=== PATIENT | male | born 1960 | race Hispanic/Latino ===

== ENCOUNTER 2020-03-22 10:39 | Inpatient (IN) | payer BC ==
[~2020-03-22] VITALS: Ht 167.6 cm; Wt 118.9 kg
[2020-03-22] MEDS ORDERED: LACTATED RINGER'S 500 ML IV ONE (11:15)
[2020-03-22 11:24] LABS: BASOPHILS # (AUTO) 0.1 (0.0-0.1); BASOPHILS % 0.7 % (0.0-1.0); HEMATOCRIT 37.5 % (38.2-49.6); HEMOGLOBIN 12.5 g/dL (14.0-18.0); LYMPHOCYTES # (AUTO) 0.6 (1.0-3.2); LYMPHOCYTES % 5.9 % (18.0-39.1); MEAN CORPUSCULAR HEMOGLOBIN 31.7 pg (28-32); MEAN CORPUSCULAR HGB CONC 33.3 g/dL (31-35); MEAN CORPUSCULAR VOLUME 95.2 fL (81-99); MONOCYTES % 11.1 % (4.4-11.3); NEUTROPHILS # (AUTO) 7.4 (2.1-6.9); NEUTROPHILS % 79.3 % (38.7-80.0); PLATELET COUNT 91 x10e3/uL (140-360); RED BLOOD COUNT 3.94 x10e6/uL (4.3-5.7); RED CELL DISTRIBUTION WIDTH 14.2 % (11.7-14.4)
[2020-03-22] MEDS ORDERED: LACTATED RINGER'S 1,000 ML ONE (11:32)
[2020-03-22 12:04] LABS: ALBUMIN 2.5 g/dL (3.5-5.0); ALBUMIN/GLOBULIN RATIO 0.7 (0.8-2.0); ANION GAP 25.9 mmol/L (8-16); CALCIUM 7.8 mg/dL (8.4-10.2); CREATININE, SERUM 7.49 mg/dL (0.72-1.25); POTASSIUM 4.9 mmol/L (3.5-5.1)
[2020-03-22] MEDS ORDERED: LACTATED RINGER'S 1,000 ML INJ ONE (12:15)
[2020-03-22 12:26] LABS: BAND NEUTROPHILS % (MANUAL) 1 %; LYMPHOCYTES % (MANUAL) 9 % (19-48); MONOCYTES % (MANUAL) 8 % (3.4-9.0); NEUTROPHILS % (MANUAL) 82 % (40-74); NUCLEATED RED BLOOD CELLS 1; PLATELET ESTIMATE SLIGHTLY DECREASED; PLATELET MORPHOLOGY COMMENT NORMAL; RBC MORPHOLOGY COMMENT NORMAL
[2020-03-22] MEDS ORDERED: PIPERACILLIN/TAZO 4.5 GM 100 ML IV STA (12:52)
[2020-03-22] MEDS ORDERED: SODIUM CHLORIDE 0.9% 1000ML 1,000 ML IV SCH (13:00)
[2020-03-22] MEDS ORDERED: NOREPINEPHRINE INJ 4MG/4ML 8 MG in DEXTROSE 5% 250ML 250 ML IV STA (15:14)
[2020-03-22 15:28] LABS: CLARITY,URINE CLOUDY (CLEAR); COLOR,URINE AMBER (YELLOW); KETONES,URINE 1+ (NEGATIVE); LEUKOCYTE ESTERASE ,URINE LARGE (NEGATIVE); NITRITE,URINE POSITIVE (NEGATIVE); PROTEIN,URINE DIPSTICK >=300 (NEGATIVE); URINE UROBILINOGEN 1 mg/dL (0.2 - 1)
[2020-03-22 15:43] LABS: BACTERIA,URINE MANY /HPF; WBC,URINE (MAN) >50 /HPF (0-5)
[2020-03-22] MEDS ORDERED: DEXTROSE 50% SYRINGE 50 ML IV PRN (16:00)
[2020-03-22] MEDS ORDERED: ALBUTEROL SULF 0.083% NEB SOLN 3 ML NEB NEB PRN (16:15)
[2020-03-22] MEDS ORDERED: DEXTROSE 5%/0.9% SOD CHL 1,000 ML IV SCH (16:15)
[2020-03-22] MEDS ORDERED: CEFAZOLIN SOD 1 GM/NS 50ML 50 ML IV SCH (16:30)
[2020-03-22] MEDS ORDERED: OSELTAMIVIR PHOSPHATE 75 MG CAP PO SCH (17:00)
[2020-03-22] MEDS: INSULIN LISPRO 100 UNIT/1 ML 3ML VIAL SQ SCH ×2 (17:03→20:28)
[2020-03-22] MEDS: SODIUM BICARBONATE 8.4% 150 ML in DEXTROSE 5% 1,000 ML IV SCH (17:42)
[2020-03-22 18:09] VITALS: BP 98/56
[2020-03-22 19:00] VITALS: BP 86/56
[2020-03-22 20:00] VITALS: BP 90/63
[2020-03-22 20:32] LABS: ALBUMIN 2.2 g/dL (3.5-5.0); ALBUMIN/GLOBULIN RATIO 0.6 (0.8-2.0); ANION GAP 20.7 mmol/L (8-16); CALCIUM 7.1 mg/dL (8.4-10.2); CREATININE, SERUM 7.18 mg/dL (0.72-1.25); POTASSIUM 3.7 mmol/L (3.5-5.1)
[2020-03-22 21:00] VITALS: BP 96/69
[2020-03-22] MEDS ORDERED: HEPARIN SOD (PORCINE) 5,000 UNIT/ML VIAL SC SCH (21:00)
[2020-03-22] MEDS: AZITHROMYCIN 500MG/NS 250 ML 250 ML IV SCH (21:30)
[2020-03-22 22:00] VITALS: BP 98/70
[2020-03-22 23:00] VITALS: BP 97/73
[2020-03-22] MEDS ORDERED: CEFTRIAXONE SOD 1 GM/NS 50 ML 50 ML IV SCH (23:30)
[2020-03-23] VITALS (24 sets, daily range): BP systolic 73–202; BP diastolic 36–111
[2020-03-23] MEDS: SODIUM BICARBONATE 8.4% 150 ML in DEXTROSE 5% 1,000 ML IV SCH ×2 (03:57→16:25)
[2020-03-23 04:41] LABS: BASOPHILS # (AUTO) 0.1 (0.0-0.1); BASOPHILS % 1.7 % (0.0-1.0); HEMATOCRIT 36.9 % (38.2-49.6); HEMOGLOBIN 12.4 g/dL (14.0-18.0); LYMPHOCYTES # (AUTO) 0.2 (1.0-3.2); LYMPHOCYTES % 5.9 % (18.0-39.1); MEAN CORPUSCULAR HGB CONC 33.6 g/dL (31-35); MEAN CORPUSCULAR VOLUME 95.3 fL (81-99); MONOCYTES # (AUTO) 0.1 (0.2-0.8); MONOCYTES % 2.2 % (4.4-11.3); NEUTROPHILS # (AUTO) 3.6 (2.1-6.9); NEUTROPHILS % 88.5 % (38.7-80.0); PLATELET COUNT 70 x10e3/uL (140-360); RED BLOOD COUNT 3.87 x10e6/uL (4.3-5.7); RED CELL DISTRIBUTION WIDTH 13.7 % (11.7-14.4)
[2020-03-23 05:03] LABS: ALBUMIN 2.2 g/dL (3.5-5.0); ALBUMIN/GLOBULIN RATIO 0.6 (0.8-2.0); ANION GAP 27.2 mmol/L (8-16); CREATININE, SERUM 7.46 mg/dL (0.72-1.25); POTASSIUM 3.2 mmol/L (3.5-5.1)
[2020-03-23 05:16] LABS: MAGNESIUM 1.7 MG/DL (1.3-2.1); PHOSPHORUS 4.4 MG/DL (2.3-4.7)
[2020-03-23] MEDS ORDERED: DEXMEDETOMIDINE 200MCG/NS 50ML 50 ML IV PRN (06:30)
[2020-03-23 06:34] LABS: BAND NEUTROPHILS % (MANUAL) 27 %; LYMPHOCYTES % (MANUAL) 6 % (19-48); MONOCYTES % (MANUAL) 4 % (3.4-9.0); NEUTROPHILS % (MANUAL) 63 % (40-74); RBC MORPHOLOGY COMMENT ABNORMAL; TOXIC GRANULATION MODERATE
[2020-03-23 06:35] LABS: ANISOCYTOSIS FEW; ELLIPTOCYTE, RBC FEW; PLATELET MORPHOLOGY COMMENT FEW GIANT; SCHISTOCYTES RARE; VACUOLE,WBC FEW
[2020-03-23 06:36] LABS: PLATELET ESTIMATE MODERATELY DECREASED
[2020-03-23] MEDS ORDERED: DEXMEDETOMIDINE 200MCG/NS 50ML 50 ML IV ONE (06:43)
[2020-03-23] MEDS ORDERED: AMIODARONE HCL 100 ML IV ONE (07:00)
[2020-03-23] MEDS ORDERED: AMIODARONE 900MG 500 ML IV ONE (07:01)
[2020-03-23] MEDS: INSULIN LISPRO 100 UNIT/1 ML 3ML VIAL SQ SCH ×4 (07:30→23:39)
[2020-03-23] MEDS ORDERED: ADENOSINE 6MG/2ML 0 ML ONE (07:53)
[2020-03-23] MEDS ORDERED: DILTIAZEM HCL VIAL 5 ML ONE (08:06)
[2020-03-23] MEDS ORDERED: HEPARIN 25,000 UNIT 1,000 UNIT in DEXTROSE 5% 250ML 250 ML IV SCH (08:30)
[2020-03-23] MEDS ORDERED: HEPARIN SOD (PORCINE) 5,000 UNIT/ML VIAL IV ONE (08:30)
[2020-03-23] MEDS ORDERED: NOREPINEPHRINE 8 MG/D5W 250 ML 0 ML ONE (08:34)
[2020-03-23] MEDS ORDERED: PROPOFOL IV EMULSION 10MG/ML 100 ML ONE ×2 (08:35→10:45)
[2020-03-23] MEDS ORDERED: CALCIUM GLUCONATE 10% INJ 4.65 MEQ in SODIUM CHLORIDE 0.9% 50ML 50 ML IV ONE (09:00)
[2020-03-23] MEDS ORDERED: OSELTAMIVIR PHOSPHATE 75 MG CAP PO SCH (09:00)
[2020-03-23] MEDS ORDERED: HEPARIN SOD (PORCINE) 1000 UNIT/ML SDV IV PRN (09:30)
[2020-03-23] MEDS ORDERED: SODIUM CHLORIDE 0.9% 1000ML 2,000 ML IV PRN (09:30)
[2020-03-23] MEDS ORDERED: MANNITOL 25% 12.5GM/50 ML VIAL IV PRN (09:30)
[2020-03-23] MEDS ORDERED: SODIUM CHLORIDE 0.9% 50ML 50 ML ONE (09:50)
[2020-03-23] MEDS ORDERED: PROPOFOL IV EMULSION 10MG/ML 100 ML IV SCH (11:15)
[2020-03-23] MEDS ORDERED: SODIUM BICARBONATE 8.4% SYRING 100 ML ONE ×2 (11:28→14:18)
[2020-03-23] MEDS: ASPIRIN 81 MG CHEW TAB PO SCH (11:50)
[2020-03-23] MEDS: PHENYLEPHRINE 10MG/ML VIAL 40 MG in DEXTROSE 5% 250ML 250 ML IV SCH ×2 (11:50→23:40)
[2020-03-23] MEDS ORDERED: SODIUM CITRATE 10 GM/250 ML BAG HE ONE (12:00)
[2020-03-23 12:08] LABS: ABG HCO3 17 mmol/L (22-26); ABG PCO2 56 mmHg (35-45); ABG PH 7.09 (7.35-7.45); ABG PO2 109 mmHg (80-105); ABG TCO2 19
[2020-03-23] MEDS: OSELTAMIVIR PHOSPHATE 30 MG CAPSULE PO SCH (12:18)
[2020-03-23 13:22] LABS: ABG HCO3 21 mmol/L (22-26); ABG PCO2 62 mmHg (35-45); ABG PH 7.13 (7.35-7.45); ABG PO2 153 mmHg (80-105); ABG TCO2 23
[2020-03-23 13:56] LABS: ANION GAP 28.9 mmol/L (8-16); CALCIUM 7.3 mg/dL (8.4-10.2); CREATININE, SERUM 6.19 mg/dL (0.72-1.25); POTASSIUM 3.9 mmol/L (3.5-5.1)
[2020-03-23 13:57] LABS: INR 1.49; PROTHROMBIN TIME 18.8 seconds (11.9-14.5)
[2020-03-23 13:58] LABS: PARTIAL THROMBOPLASTIN TIME 40.7 seconds (23.8-35.5)
[2020-03-23] MEDS ORDERED: AMIODARONE HCL INJ 150MG/3ML ONE (14:16)
[2020-03-23] MEDS ORDERED: DEXTROSE 50% SYRINGE 50 ML IV ONE (14:16)
[2020-03-23] MEDS ORDERED: EPINEPHRINE HCL SYRINGE ONE (14:17)
[2020-03-23] MEDS ORDERED: CALCIUM CHLORIDE 10% SYRINGE 10 ML IV ONE (14:17)
[2020-03-23] MEDS ORDERED: ATROPINE SULFATE 0.1 MG/ML 10ML SYR ONE (14:17)
[2020-03-23] MEDS ORDERED: SODIUM CHLORIDE 0.9% IV ONE (15:00)
[2020-03-23] MEDS ORDERED: VANCOMYCIN 1GM/NS 250 ML 250 ML IV ONE (15:00)
[2020-03-23] MEDS ORDERED: CEFAZOLIN SOD 1 GM/NS 50ML 50 ML IV SCH (17:00)
[2020-03-23 17:06] LABS: ABG PCO2 46 mmHg (35-45); ABG PH 7.21 (7.35-7.45); ABG PO2 272 mmHg (80-105)
[2020-03-23 17:07] LABS: ABG HCO3 18 mmol/L (22-26); ABG TCO2 20
[2020-03-23] MEDS: NOREPINEPHRINE 8 MG/D5W 250 ML 250 ML IV SCH (17:10)
[2020-03-23] MEDS: CEFEPIME 1GM/NS 0.9% 50 ML 50 ML IV SCH (17:11)
[2020-03-23] MEDS ORDERED: [UNRECOGNIZED DRUG - OTHER] IV STA (17:25)
[2020-03-23] MEDS ORDERED: GENTAMICIN IV STA (17:25)
[2020-03-23] MEDS ORDERED: GENTAMICIN SULFATE 160 MG in SODIUM CHLORIDE 0.9% 100 ML IV ONE (18:00)
[2020-03-23] MEDS: AZITHROMYCIN 500MG/NS 250 ML 250 ML IV SCH (20:19)
[2020-03-24] VITALS (24 sets, daily range): BP systolic 71–107; BP diastolic 44–77
[2020-03-24] MEDS: SODIUM BICARBONATE 8.4% 150 ML in DEXTROSE 5% 1,000 ML IV SCH (02:04)
[2020-03-24 04:45] LABS: BASOPHILS % 0.1 % (0.0-1.0); EOSINOPHILS % 0.1 % (0.0-6.0); HEMATOCRIT 33.6 % (38.2-49.6); HEMOGLOBIN 11.5 g/dL (14.0-18.0); LYMPHOCYTES # (AUTO) 0.7 (1.0-3.2); LYMPHOCYTES % 4.6 % (18.0-39.1); MEAN CORPUSCULAR HEMOGLOBIN 32.3 pg (28-32); MEAN CORPUSCULAR HGB CONC 34.2 g/dL (31-35); MEAN CORPUSCULAR VOLUME 94.4 fL (81-99); MONOCYTES # (AUTO) 1.7 (0.2-0.8); NEUTROPHILS # (AUTO) 12.4 (2.1-6.9); NEUTROPHILS % 80.4 % (38.7-80.0); PLATELET COUNT 60 x10e3/uL (140-360); RED BLOOD COUNT 3.56 x10e6/uL (4.3-5.7); RED CELL DISTRIBUTION WIDTH 14.7 % (11.7-14.4)
[2020-03-24] MEDS: INSULIN LISPRO 100 UNIT/1 ML 3ML VIAL SQ SCH ×2 (05:07→12:31)
[2020-03-24] MEDS: CEFEPIME 1GM/NS 0.9% 50 ML 50 ML IV SCH (05:07)
[2020-03-24 05:08] LABS: ALBUMIN 1.7 g/dL (3.5-5.0); ALBUMIN/GLOBULIN RATIO 0.5 (0.8-2.0); ANION GAP 25.5 mmol/L (8-16); CREATININE, SERUM 6.7 mg/dL (0.72-1.25); MAGNESIUM 1.8 MG/DL (1.3-2.1); POTASSIUM 3.5 mmol/L (3.5-5.1)
[2020-03-24 05:12] LABS: CALCIUM 6.3 mg/dL (8.4-10.2)
[2020-03-24] MEDS: OSELTAMIVIR PHOSPHATE 30 MG CAPSULE PO SCH (08:09)
[2020-03-24] MEDS: ASPIRIN 81 MG CHEW TAB PO SCH (08:09)
[2020-03-24] MEDS: NOREPINEPHRINE 8 MG/D5W 250 ML 250 ML IV SCH ×2 (08:10→14:49)
[2020-03-24] MEDS: PHENYLEPHRINE 10MG/ML VIAL 40 MG in DEXTROSE 5% 250ML 250 ML IV SCH ×2 (08:11→21:41)
[2020-03-24 09:59] LABS: BAND NEUTROPHILS % (MANUAL) 1 %; LYMPHOCYTES % (MANUAL) 5 % (19-48); MONOCYTES % (MANUAL) 10 % (3.4-9.0); NEUTROPHILS % (MANUAL) 84 % (40-74); NUCLEATED RED BLOOD CELLS 1; PLATELET ESTIMATE MODERATELY DECREASED; PLATELET MORPHOLOGY COMMENT NORMAL; RBC MORPHOLOGY COMMENT NORMAL
[2020-03-24] MEDS ORDERED: DEXMEDETOMIDINE HCL 200 MCG in SODIUM CHLORIDE 0.9% 50ML 48 ML IV PRN (11:00)
[2020-03-24] MEDS ORDERED: DEXMEDETOMIDINE 200MCG/NS 50ML 50 ML IV PRN (11:00)
[2020-03-24] MEDS ORDERED: FUROSEMIDE INJ 10 MG/ML 4 ML VIAL IV ONE (14:15)
[2020-03-24] MEDS: LACTATED RINGER'S 1,000 ML INJ SCH (14:49)
[2020-03-24 16:06] LABS: ABG PCO2 36 mmHg (35-45); ABG PH 7.48 (7.35-7.45); ABG PO2 139 mmHg (80-105)
[2020-03-24 16:07] LABS: ABG HCO3 27 mmol/L (22-26); ABG TCO2 28
[2020-03-24] MEDS ORDERED: AMIODARONE 900MG 500 ML IV SCH (16:30)
[2020-03-24] MEDS ORDERED: SODIUM CITRATE 10 GM/250 ML BAG HE PRN (18:00)
[2020-03-24] MEDS ORDERED: HEPARIN SOD (PORCINE) 1000 UNIT/ML SDV IV PRN (18:00)
[2020-03-24] MEDS ORDERED: FENTANYL CITRATE/PF 100MCG/2 ML INJ IV PRN (20:00)
[2020-03-24] MEDS: LORAZEPAM INJ 2 MG/ML VIAL IV PRN (20:19)
[2020-03-24] MEDS ORDERED: HEPARIN SOD (PORCINE) 5,000 UNIT/ML VIAL SC SCH (21:00)
[2020-03-24] MEDS ORDERED: CEFEPIME 1GM/NS 0.9% 50 ML 50 ML IV SCH (21:00)
[2020-03-24] MEDS ORDERED: FENTANYL CITRATE/PF 100MCG/2 ML INJ IV ONE (22:00)
[2020-03-24] MEDS ORDERED: LORAZEPAM INJ 2 MG/ML VIAL IV ONE (22:00)
[2020-03-25] VITALS (26 sets, daily range): BP systolic 86–154; BP diastolic 54–92
[2020-03-25] MEDS: LORAZEPAM INJ 2 MG/ML VIAL IV PRN (00:12)
[2020-03-25] MEDS: LACTATED RINGER'S 1,000 ML INJ SCH ×3 (00:17→20:24)
[2020-03-25] MEDS ORDERED: FENTANYL CITRATE INJ 2,000 MCG in SODIUM CHLORIDE 0.9% 250ML 210 ML IV PRN (01:45)
[2020-03-25] MEDS ORDERED: FENTANYL 2000MCG/NS 250 250 ML ONE (01:51)
[2020-03-25 04:45] LABS: BASOPHILS # (AUTO) 0.1 (0.0-0.1); BASOPHILS % 0.4 % (0.0-1.0); EOSINOPHILS % 0.1 % (0.0-6.0); HEMOGLOBIN 11.2 g/dL (14.0-18.0); LYMPHOCYTES # (AUTO) 1.3 (1.0-3.2); LYMPHOCYTES % 6.3 % (18.0-39.1); MEAN CORPUSCULAR HEMOGLOBIN 31.5 pg (28-32); MEAN CORPUSCULAR HGB CONC 33.9 g/dL (31-35); MONOCYTES # (AUTO) 2.2 (0.2-0.8); MONOCYTES % 10.7 % (4.4-11.3); NEUTROPHILS # (AUTO) 16.2 (2.1-6.9); NEUTROPHILS % 78.6 % (38.7-80.0); PLATELET COUNT 50 x10e3/uL (140-360); RED BLOOD COUNT 3.55 x10e6/uL (4.3-5.7); RED CELL DISTRIBUTION WIDTH 14.7 % (11.7-14.4)
[2020-03-25 05:01] LABS: ANION GAP 21.5 mmol/L (8-16); POTASSIUM 3.5 mmol/L (3.5-5.1)
[2020-03-25 05:43] LABS: CALCIUM 6.6 mg/dL (8.4-10.2)
[2020-03-25 05:44] LABS: CREATININE, SERUM 3.15 mg/dL (0.72-1.25)
[2020-03-25 08:26] LABS: EOSINOPHILS % (MANUAL) 1 % (0-7); LYMPHOCYTES % (MANUAL) 8 % (19-48); MONOCYTES % (MANUAL) 11 % (3.4-9.0); NEUTROPHILS % (MANUAL) 80 % (40-74); NUCLEATED RED BLOOD CELLS 2; PLATELET ESTIMATE MODERATELY DECREASED; RBC MORPHOLOGY COMMENT NORMAL
[2020-03-25 08:27] LABS: PLATELET MORPHOLOGY COMMENT NORMAL
[2020-03-25] MEDS: ACETAMINOPHEN 325 MG TAB PO PRN ×2 (09:00→23:48)
[2020-03-25] MEDS ORDERED: ACETAMINOPHEN 325 MG/10 ML UDC ONE (09:01)
[2020-03-25] MEDS ORDERED: CALCIUM CHLORIDE 13.6 MEQ in SODIUM CHLORIDE 0.9% 100 ML 100 ML IV ONE (09:15)
[2020-03-25] MEDS ORDERED: GENTAMICIN 120MG/NS 100ML 100 ML IV ONE (09:30)
[2020-03-25] MEDS: OSELTAMIVIR PHOSPHATE 30 MG CAPSULE PO SCH (09:42)
[2020-03-25] MEDS: MEROPENEM 500MG/ NS 50ML 50 ML IV SCH ×2 (09:42→20:24)
[2020-03-25] MEDS: ASPIRIN 81 MG CHEW TAB PO SCH (09:42)
[2020-03-25] MEDS: FENTANYL 2000MCG/NS 250 250 ML IV PRN ×2 (11:03→20:25)
[2020-03-25] MEDS ORDERED: HEPARIN SOD (PORCINE) 1000 UNIT/ML SDV ONE (11:13)
[2020-03-25] MEDS: AMIODARONE 900MG 500 ML IV SCH (11:47)
[2020-03-25] MEDS: PHENYLEPHRINE 10MG/ML VIAL 40 MG in DEXTROSE 5% 250ML 250 ML IV SCH ×2 (12:25→16:09)
[2020-03-25] MEDS ORDERED: AMIODARONE HCL 200 MG TAB PO SCH (14:00)
[2020-03-25] MEDS: NOREPINEPHRINE 8 MG/D5W 250 ML 250 ML IV SCH (17:00)
[2020-03-25] MEDS ORDERED: DEXMEDETOMIDINE 200MCG/NS 50ML 50 ML IV PRN (17:30)
[2020-03-25] MEDS ORDERED: DEXMEDETOMIDINE 200MCG/NS 50ML 50 ML IV ONE (17:33)
[2020-03-25 17:44] LABS: ABG HCO3 25 mmol/L (22-26); ABG PCO2 43 mmHg (35-45); ABG PH 7.37 (7.35-7.45); ABG PO2 67 mmHg (80-105); ABG TCO2 27
[2020-03-25] MEDS: AMIODARONE HCL 200 MG TAB PO SCH (17:51)
[2020-03-26] VITALS (24 sets, daily range): BP systolic 76–132; BP diastolic 53–93
[2020-03-26] MEDS: AMIODARONE HCL 200 MG TAB PO SCH ×3 (01:23→17:29)
[2020-03-26] MEDS: LACTATED RINGER'S 1,000 ML INJ SCH (05:23)
[2020-03-26] MEDS: FENTANYL 2000MCG/NS 250 250 ML IV PRN ×4 (05:29→23:45)
[2020-03-26 05:37] LABS: BASOPHILS # (AUTO) 0.1 (0.0-0.1); BASOPHILS % 0.5 % (0.0-1.0); EOSINOPHILS # (AUTO) 0.2 (0.0-0.4); EOSINOPHILS % 0.5 % (0.0-6.0); HEMATOCRIT 34.5 % (38.2-49.6); HEMOGLOBIN 11.3 g/dL (14.0-18.0); LYMPHOCYTES # (AUTO) 1.6 (1.0-3.2); LYMPHOCYTES % 5.7 % (18.0-39.1); MEAN CORPUSCULAR HEMOGLOBIN 31.3 pg (28-32); MEAN CORPUSCULAR HGB CONC 32.8 g/dL (31-35); MEAN CORPUSCULAR VOLUME 95.6 fL (81-99); MONOCYTES # (AUTO) 2.8 (0.2-0.8); MONOCYTES % 10.2 % (4.4-11.3); NEUTROPHILS # (AUTO) 21.6 (2.1-6.9); RED BLOOD COUNT 3.61 x10e6/uL (4.3-5.7); RED CELL DISTRIBUTION WIDTH 15.4 % (11.7-14.4)
[2020-03-26 05:40] LABS: PLATELET COUNT 43 x10e3/uL (140-360)
[2020-03-26 05:45] LABS: ANION GAP 18.3 mmol/L (8-16); CALCIUM 7.1 mg/dL (8.4-10.2); CREATININE, SERUM 5.18 mg/dL (0.72-1.25); POTASSIUM 4.3 mmol/L (3.5-5.1)
[2020-03-26 06:09] LABS: MAGNESIUM 1.8 MG/DL (1.3-2.1); PHOSPHORUS 4.2 MG/DL (2.3-4.7)
[2020-03-26] MEDS: ASPIRIN 81 MG CHEW TAB PO SCH (09:00)
[2020-03-26] MEDS ORDERED: DEXTROSE 50% SYRINGE 50 ML IV PRN (09:15)
[2020-03-26] MEDS: OSELTAMIVIR PHOSPHATE 30 MG CAPSULE PO SCH (09:40)
[2020-03-26] MEDS: MEROPENEM 500MG/ NS 50ML 50 ML IV SCH ×2 (09:40→20:54)
[2020-03-26] MEDS: PHENYLEPHRINE 10MG/ML VIAL 40 MG in DEXTROSE 5% 250ML 250 ML IV SCH ×3 (09:41→16:30)
[2020-03-26] MEDS ORDERED: INSULIN GLARGINE 100 UNITS/ML VIAL SQ ONE (10:00)
[2020-03-26] MEDS: ACETAMINOPHEN 325 MG TAB PO PRN (10:13)
[2020-03-26] MEDS: NOREPINEPHRINE 8 MG/D5W 250 ML 250 ML IV SCH (10:30)
[2020-03-26] MEDS: AMIODARONE 900MG 500 ML IV SCH (11:30)
[2020-03-26] MEDS ORDERED: INSULIN LISPRO 100 UNIT/1 ML 3ML VIAL SQ SCH (11:30)
[2020-03-26] MEDS ORDERED: GENTAMICIN 120MG/NS 100ML 100 ML IV ONE (12:00)
[2020-03-26] MEDS: MIDAZOLAM HCL 5MG/ML 10ML VIAL 100 ML IV PRN (13:00)
[2020-03-26] MEDS ORDERED: HEPARIN SOD (PORCINE) 1000 UNIT/ML SDV ONE (14:22)
[2020-03-26] MEDS ORDERED: ALBUMIN 25% 12.5GM 50ML 100 ML IV ONE (14:23)
[2020-03-26] MEDS: VASOPRESSIN 60 UNIT in DEXTROSE 5% 50ML 57 ML IV SCH (15:00)
[2020-03-26 15:17] LABS: ABG HCO3 26 mmol/L (22-26); ABG PCO2 62 mmHg (35-45); ABG PH 7.24 (7.35-7.45); ABG PO2 85 mmHg (80-105); ABG TCO2 28
[2020-03-26] MEDS: INSULIN GLARGINE 100 UNITS/ML VIAL SQ SCH (21:00)
[2020-03-27] VITALS (22 sets, daily range): BP systolic 81–102; BP diastolic 41–83
[2020-03-27] MEDS: MIDAZOLAM HCL 5MG/ML 10ML VIAL 100 ML IV PRN ×4 (00:20→20:55)
[2020-03-27] MEDS: AMIODARONE HCL 200 MG TAB PO SCH ×3 (01:30→18:54)
[2020-03-27 04:25] LABS: BASOPHILS # (AUTO) 0.2 (0.0-0.1); BASOPHILS % 0.6 % (0.0-1.0); EOSINOPHILS # (AUTO) 0.3 (0.0-0.4); HEMATOCRIT 36.5 % (38.2-49.6); LYMPHOCYTES # (AUTO) 1.6 (1.0-3.2); LYMPHOCYTES % 5.6 % (18.0-39.1); MEAN CORPUSCULAR HEMOGLOBIN 31.4 pg (28-32); MEAN CORPUSCULAR HGB CONC 32.9 g/dL (31-35); MEAN CORPUSCULAR VOLUME 95.5 fL (81-99); MONOCYTES # (AUTO) 1.7 (0.2-0.8); MONOCYTES % 6.2 % (4.4-11.3); NEUTROPHILS # (AUTO) 22.1 (2.1-6.9); RED BLOOD COUNT 3.82 x10e6/uL (4.3-5.7); RED CELL DISTRIBUTION WIDTH 15.5 % (11.7-14.4)
[2020-03-27 04:29] LABS: INR 1.36; PROTHROMBIN TIME 17.5 seconds (11.9-14.5)
[2020-03-27 04:30] LABS: PARTIAL THROMBOPLASTIN TIME 36.5 seconds (23.8-35.5)
[2020-03-27 04:38] LABS: ANION GAP 14.9 mmol/L (8-16); CALCIUM 7.1 mg/dL (8.4-10.2); CREATININE, SERUM 5.6 mg/dL (0.72-1.25); POTASSIUM 3.9 mmol/L (3.5-5.1)
[2020-03-27 04:42] LABS: PLATELET COUNT 42 x10e3/uL (140-360)
[2020-03-27] MEDS: FENTANYL 2000MCG/NS 250 250 ML IV PRN ×2 (05:10→13:00)
[2020-03-27] MEDS: VASOPRESSIN 60 UNIT in DEXTROSE 5% 50ML 57 ML IV SCH (08:00)
[2020-03-27] MEDS: OSELTAMIVIR PHOSPHATE 30 MG CAPSULE PO SCH (09:16)
[2020-03-27] MEDS: MEROPENEM 500MG/ NS 50ML 50 ML IV SCH ×2 (09:16→21:29)
[2020-03-27] MEDS: PHENYLEPHRINE 10MG/ML VIAL 40 MG in DEXTROSE 5% 250ML 250 ML IV SCH ×3 (10:16→21:23)
[2020-03-27] MEDS: AMIODARONE 900MG 500 ML IV SCH (11:30)
[2020-03-27] MEDS ORDERED: SODIUM CHLORIDE 0.9% 1000ML 1,000 ML ONE (13:31)
[2020-03-27 14:45] LABS: ABG HCO3 22 mmol/L (22-26); ABG PCO2 50 mmHg (35-45); ABG PH 7.25 (7.35-7.45); ABG PO2 103 mmHg (80-105); ABG TCO2 23
[2020-03-27] MEDS: NOREPINEPHRINE 8 MG/D5W 250 ML 250 ML IV SCH ×2 (17:08→22:49)
[2020-03-27] MEDS: INSULIN GLARGINE 100 UNITS/ML VIAL SQ SCH (21:30)
[2020-03-28] VITALS (23 sets, daily range): BP systolic 66–155; BP diastolic 38–85
[2020-03-28] MEDS: AMIODARONE HCL 200 MG TAB PO SCH (02:30)
[2020-03-28] MEDS ORDERED: SODIUM CHLORIDE 0.9% 250ML 250 ML ONE (05:08)
[2020-03-28 06:32] LABS: BASOPHILS # (AUTO) 0.4 (0.0-0.1); BASOPHILS % 1.3 % (0.0-1.0); EOSINOPHILS # (AUTO) 0.4 (0.0-0.4); EOSINOPHILS % 1.3 % (0.0-6.0); HEMATOCRIT 35.7 % (38.2-49.6); HEMOGLOBIN 12.1 g/dL (14.0-18.0); LYMPHOCYTES # (AUTO) 2.4 (1.0-3.2); LYMPHOCYTES % 7.7 % (18.0-39.1); MEAN CORPUSCULAR HEMOGLOBIN 31.6 pg (28-32); MEAN CORPUSCULAR HGB CONC 33.9 g/dL (31-35); MEAN CORPUSCULAR VOLUME 93.2 fL (81-99); MONOCYTES # (AUTO) 2.1 (0.2-0.8); MONOCYTES % 6.8 % (4.4-11.3); NEUTROPHILS # (AUTO) 21.5 (2.1-6.9); NEUTROPHILS % 70.9 % (38.7-80.0); PLATELET COUNT 73 x10e3/uL (140-360); RED BLOOD COUNT 3.83 x10e6/uL (4.3-5.7); RED CELL DISTRIBUTION WIDTH 15.1 % (11.7-14.4)
[2020-03-28 06:51] LABS: ANION GAP 17.9 mmol/L (8-16); CALCIUM 7.2 mg/dL (8.4-10.2); CREATININE, SERUM 6.2 mg/dL (0.72-1.25); POTASSIUM 3.9 mmol/L (3.5-5.1)
[2020-03-28] MEDS: MIDAZOLAM HCL 5MG/ML 10ML VIAL 100 ML IV PRN ×2 (06:52→19:08)
[2020-03-28] MEDS ORDERED: VASOPRESSIN IV SCH (07:00)
[2020-03-28] MEDS ORDERED: SODIUM CHLORIDE 0.9% IV SCH (07:00)
[2020-03-28] MEDS: NOREPINEPHRINE 8 MG/D5W 250 ML 250 ML IV SCH ×4 (07:36→21:10)
[2020-03-28] MEDS: VASOPRESSIN 60 UNIT in DEXTROSE 5% 50ML 57 ML IV SCH ×3 (07:40→21:09)
[2020-03-28] MEDS: OSELTAMIVIR PHOSPHATE 30 MG CAPSULE PO SCH (08:04)
[2020-03-28] MEDS: MEROPENEM 500MG/ NS 50ML 50 ML IV SCH ×2 (08:04→21:43)
[2020-03-28 08:42] LABS: BAND NEUTROPHILS % (MANUAL) 3 %; EOSINOPHILS % (MANUAL) 1 % (0-7); LYMPHOCYTES % (MANUAL) 9 % (19-48); METAMYELOCYTES % (MANUAL) 2 % (0-0); MONOCYTES % (MANUAL) 3 % (3.4-9.0); NEUTROPHILS % (MANUAL) 81 % (40-74); NUCLEATED RED BLOOD CELLS 7; PLATELET ESTIMATE MODERATELY DECREASED
[2020-03-28 08:43] LABS: ANISOCYTOSIS SLIGHT; PLATELET MORPHOLOGY COMMENT FEW GIANT; POLYCHROMASIA FEW
[2020-03-28 08:44] LABS: RBC MORPHOLOGY COMMENT NORMAL
[2020-03-28] MEDS: ASPIRIN 81 MG CHEW TAB PO SCH (09:00)
[2020-03-28] MEDS: PHENYLEPHRINE 10MG/ML VIAL 40 MG in DEXTROSE 5% 250ML 250 ML IV SCH ×4 (09:00→21:10)
[2020-03-28] MEDS: FENTANYL 2000MCG/NS 250 250 ML IV PRN ×2 (09:17→22:07)
[2020-03-28] MEDS: INSULIN REGULAR, HUMAN 3ML VL 100 UNIT in SODIUM CHLORIDE 0.9% 100 ML 100 ML IV SCH ×2 (10:55)
[2020-03-28] MEDS: AMIODARONE 900MG 500 ML IV SCH (11:08)
[2020-03-28] MEDS ORDERED: ALTEPLASE RECOMBINANT 2 MG/2 ML VIAL IV PRN (16:00)
[2020-03-28] MEDS ORDERED: HEPARIN SOD (PORCINE) 1000 UNIT/ML SDV IV PRN (16:00)
[2020-03-28] MEDS: INSULIN GLARGINE 100 UNITS/ML VIAL SQ SCH (21:43)
[2020-03-28 23:03] LABS: ABG PCO2 42 mmHg (35-45); ABG PH 7.33 (7.35-7.45); ABG PO2 238 mmHg (80-105)
[2020-03-28 23:04] LABS: ABG HCO3 22 mmol/L (22-26); ABG TCO2 23
[2020-03-29] VITALS (28 sets, daily range): BP systolic 75–135; BP diastolic 46–72
[2020-03-29] MEDS: PHENYLEPHRINE 10MG/ML VIAL 40 MG in DEXTROSE 5% 250ML 250 ML IV SCH ×7 (00:31→23:50)
[2020-03-29] MEDS: NOREPINEPHRINE 8 MG/D5W 250 ML 250 ML IV SCH ×4 (01:46→16:28)
[2020-03-29] MEDS: MIDAZOLAM HCL 5MG/ML 10ML VIAL 100 ML IV PRN (05:05)
[2020-03-29 06:28] LABS: ALBUMIN 1.4 g/dL (3.5-5.0); ALBUMIN/GLOBULIN RATIO 0.4 (0.8-2.0); ANION GAP 17.4 mmol/L (8-16); BILIRUBIN,DIRECT 6.4 mg/dL (0.0-0.5); CREATININE, SERUM 5.88 mg/dL (0.72-1.25); POTASSIUM 4.4 mmol/L (3.5-5.1)
[2020-03-29 06:36] LABS: CALCIUM 6.9 mg/dL (8.4-10.2)
[2020-03-29 07:07] LABS: BASOPHILS # (AUTO) 0.1 (0.0-0.1); BASOPHILS % 0.4 % (0.0-1.0); EOSINOPHILS # (AUTO) 0.4 (0.0-0.4); EOSINOPHILS % 1.4 % (0.0-6.0); HEMATOCRIT 31.6 % (38.2-49.6); HEMOGLOBIN 10.6 g/dL (14.0-18.0); LYMPHOCYTES # (AUTO) 2.3 (1.0-3.2); LYMPHOCYTES % 7.6 % (18.0-39.1); MEAN CORPUSCULAR HEMOGLOBIN 31.5 pg (28-32); MEAN CORPUSCULAR HGB CONC 33.5 g/dL (31-35); MEAN CORPUSCULAR VOLUME 93.8 fL (81-99); MONOCYTES # (AUTO) 1.8 (0.2-0.8); NEUTROPHILS # (AUTO) 21.5 (2.1-6.9); NEUTROPHILS % 71.3 % (38.7-80.0); PLATELET COUNT 78 x10e3/uL (140-360); RED BLOOD COUNT 3.37 x10e6/uL (4.3-5.7); RED CELL DISTRIBUTION WIDTH 15.2 % (11.7-14.4)
[2020-03-29] MEDS: MEROPENEM 500MG/ NS 50ML 50 ML IV SCH ×2 (08:24→21:43)
[2020-03-29] MEDS: ASPIRIN 81 MG CHEW TAB PO SCH (08:24)
[2020-03-29] MEDS: FENTANYL 2000MCG/NS 250 250 ML IV PRN (09:37)
[2020-03-29 09:39] LABS: ANISOCYTOSIS SLIGHT; EOSINOPHILS % (MANUAL) 1 % (0-7); LYMPHOCYTES % (MANUAL) 6 % (19-48); METAMYELOCYTES % (MANUAL) 7 % (0-0); MONOCYTES % (MANUAL) 3 % (3.4-9.0); NEUTROPHILS % (MANUAL) 83 % (40-74); NUCLEATED RED BLOOD CELLS 7; PLATELET ESTIMATE SLIGHTLY DECREASED; PLATELET MORPHOLOGY COMMENT NORMAL; POLYCHROMASIA FEW
[2020-03-29 09:40] LABS: RBC MORPHOLOGY COMMENT NORMAL
[2020-03-29] MEDS: AMIODARONE 900MG 500 ML IV SCH (11:26)
[2020-03-29] MEDS: INSULIN REGULAR, HUMAN 3ML VL 100 UNIT in SODIUM CHLORIDE 0.9% 100 ML 100 ML IV SCH ×2 (11:27)
[2020-03-29] MEDS ORDERED: CALCIUM CHLORIDE 13.6 MEQ in SODIUM CHLORIDE 0.9% 100 ML 100 ML IV ONE (14:00)
[2020-03-29] MEDS ORDERED: ALBUMIN 25% 12.5GM 50ML 100 ML IV ONE (15:27)
[2020-03-29] MEDS ORDERED: HEPARIN SOD (PORCINE) 1000 UNIT/ML SDV IV PRN (15:45)
[2020-03-29] MEDS ORDERED: ALBUMIN 25% 12.5GM 0.25 GM/ML BTL IV PRN (16:00)
[2020-03-29] MEDS: VASOPRESSIN 60 UNIT in DEXTROSE 5% 50ML 57 ML IV SCH (16:28)
[2020-03-29] MEDS: GENTAMICIN 80MG/NS 100 ML 100 ML IV SCH (18:42)
[2020-03-29] MEDS: INSULIN GLARGINE 100 UNITS/ML VIAL SQ SCH (21:44)
[2020-03-30] VITALS (25 sets, daily range): BP systolic 87–154; BP diastolic 42–59
[2020-03-30] MEDS: PHENYLEPHRINE 10MG/ML VIAL 40 MG in DEXTROSE 5% 250ML 250 ML IV SCH ×2 (03:57→17:07)
[2020-03-30 05:01] LABS: BASOPHILS # (AUTO) 0.2 (0.0-0.1); BASOPHILS % 0.7 % (0.0-1.0); EOSINOPHILS # (AUTO) 0.3 (0.0-0.4); EOSINOPHILS % 1.1 % (0.0-6.0); HEMOGLOBIN 9.7 g/dL (14.0-18.0); LYMPHOCYTES # (AUTO) 1.6 (1.0-3.2); LYMPHOCYTES % 7.2 % (18.0-39.1); MEAN CORPUSCULAR HEMOGLOBIN 32.3 pg (28-32); MEAN CORPUSCULAR HGB CONC 34.6 g/dL (31-35); MEAN CORPUSCULAR VOLUME 93.3 fL (81-99); MONOCYTES # (AUTO) 1.1 (0.2-0.8); MONOCYTES % 5.1 % (4.4-11.3); NEUTROPHILS # (AUTO) 16.7 (2.1-6.9); NEUTROPHILS % 75.6 % (38.7-80.0); PLATELET COUNT 89 x10e3/uL (140-360); RED CELL DISTRIBUTION WIDTH 15.1 % (11.7-14.4)
[2020-03-30 05:21] LABS: ALBUMIN 1.5 g/dL (3.5-5.0); ALBUMIN/GLOBULIN RATIO 0.5 (0.8-2.0); ANION GAP 14.2 mmol/L (8-16); CREATININE, SERUM 4.54 mg/dL (0.72-1.25); POTASSIUM 4.2 mmol/L (3.5-5.1)
[2020-03-30 05:23] LABS: CALCIUM 6.9 mg/dL (8.4-10.2)
[2020-03-30 06:35] LABS: LYMPHOCYTES % (MANUAL) 10 % (19-48); METAMYELOCYTES % (MANUAL) 3 % (0-0); MONOCYTES % (MANUAL) 5 % (3.4-9.0); NEUTROPHILS % (MANUAL) 82 % (40-74); NUCLEATED RED BLOOD CELLS 4
[2020-03-30 06:38] LABS: PLATELET ESTIMATE SLIGHTLY DECREASED; PLATELET MORPHOLOGY COMMENT FEW GIANT; POLYCHROMASIA FEW; RBC MORPHOLOGY COMMENT NORMAL
[2020-03-30] MEDS: MIDAZOLAM HCL 5MG/ML 10ML VIAL 100 ML IV PRN (07:17)
[2020-03-30] MEDS: MEROPENEM 500MG/ NS 50ML 50 ML IV SCH ×2 (08:34→21:16)
[2020-03-30] MEDS: ASPIRIN 81 MG CHEW TAB PO SCH (08:34)
[2020-03-30 09:13] LABS: ABG HCO3 24 mmol/L (22-26); ABG PCO2 48 mmHg (35-45); ABG PH 7.31 (7.35-7.45); ABG PO2 135 mmHg (80-105); ABG TCO2 26
[2020-03-30] MEDS: AMIODARONE 900MG 500 ML IV SCH (11:30)
[2020-03-30] MEDS: ACETAMINOPHEN 325 MG TAB PO PRN (12:27)
[2020-03-30] MEDS ORDERED: CALCIUM CHLORIDE 13.6 MEQ in SODIUM CHLORIDE 0.9% 100 ML 100 ML IV ONE (13:45)
[2020-03-30] MEDS: INSULIN GLARGINE 100 UNITS/ML VIAL SQ SCH (21:23)
[2020-03-31] VITALS (26 sets, daily range): BP systolic 97–178; BP diastolic 42–63
[2020-03-31] MEDS: GENTAMICIN 80MG/NS 100 ML 100 ML IV SCH ×2 (00:28→15:37)
[2020-03-31 06:38] LABS: BASOPHILS # (AUTO) 0.1 (0.0-0.1); BASOPHILS % 0.5 % (0.0-1.0); EOSINOPHILS # (AUTO) 0.1 (0.0-0.4); EOSINOPHILS % 0.6 % (0.0-6.0); HEMATOCRIT 28.2 % (38.2-49.6); HEMOGLOBIN 9.4 g/dL (14.0-18.0); LYMPHOCYTES # (AUTO) 1.3 (1.0-3.2); LYMPHOCYTES % 6.5 % (18.0-39.1); MEAN CORPUSCULAR HEMOGLOBIN 31.5 pg (28-32); MEAN CORPUSCULAR HGB CONC 33.3 g/dL (31-35); MEAN CORPUSCULAR VOLUME 94.6 fL (81-99); MONOCYTES # (AUTO) 1.2 (0.2-0.8); MONOCYTES % 6.1 % (4.4-11.3); NEUTROPHILS # (AUTO) 15.1 (2.1-6.9); NEUTROPHILS % 78.2 % (38.7-80.0); PLATELET COUNT 171 x10e3/uL (140-360); RED BLOOD COUNT 2.98 x10e6/uL (4.3-5.7); RED CELL DISTRIBUTION WIDTH 15.4 % (11.7-14.4)
[2020-03-31 06:59] LABS: ANION GAP 15.3 mmol/L (8-16); CALCIUM 7.4 mg/dL (8.4-10.2); CREATININE, SERUM 3.4 mg/dL (0.72-1.25); POTASSIUM 4.3 mmol/L (3.5-5.1)
[2020-03-31] MEDS: ASPIRIN 81 MG CHEW TAB PO SCH (08:48)
[2020-03-31] MEDS: MEROPENEM 500MG/ NS 50ML 50 ML IV SCH ×2 (08:48→20:56)
[2020-03-31] MEDS: FENTANYL 2000MCG/NS 250 250 ML IV PRN (09:06)
[2020-03-31 10:53] LABS: ABG HCO3 25 mmol/L (22-26); ABG PCO2 53 mmHg (35-45); ABG PH 7.28 (7.35-7.45); ABG PO2 103 mmHg (80-105); ABG TCO2 26
[2020-03-31 10:56] LABS: EOSINOPHILS % (MANUAL) 1 % (0-7); LYMPHOCYTES % (MANUAL) 8 % (19-48); METAMYELOCYTES % (MANUAL) 1 % (0-0); MONOCYTES % (MANUAL) 6 % (3.4-9.0); NEUTROPHILS % (MANUAL) 84 % (40-74)
[2020-03-31 10:57] LABS: ANISOCYTOSIS SLIGHT; PLATELET ESTIMATE ADEQUATE; PLATELET MORPHOLOGY COMMENT NORMAL; POLYCHROMASIA FEW; RBC MORPHOLOGY COMMENT NORMAL
[2020-03-31] MEDS: AMIODARONE 900MG 500 ML IV SCH (12:06)
[2020-03-31] MEDS: METOCLOPRAMIDE HCL 10 MG/2ML VIAL IV SCH ×2 (17:26→23:44)
[2020-03-31] MEDS ORDERED: METOCLOPRAMIDE HCL 10 MG/2ML VIAL IV SCH (18:00)
[2020-03-31] MEDS: PHENYLEPHRINE 10MG/ML VIAL 40 MG in DEXTROSE 5% 250ML 250 ML IV SCH (19:30)
[2020-03-31] MEDS: INSULIN GLARGINE 100 UNITS/ML VIAL SQ SCH (20:57)
[2020-04-01] VITALS (26 sets, daily range): BP systolic 97–142; BP diastolic 42–56
[2020-04-01] MEDS: AMIODARONE 900MG 500 ML IV SCH (00:24)
[2020-04-01 04:37] LABS: BASOPHILS # (AUTO) 0.1 (0.0-0.1); BASOPHILS % 0.6 % (0.0-1.0); EOSINOPHILS # (AUTO) 0.1 (0.0-0.4); EOSINOPHILS % 0.8 % (0.0-6.0); HEMATOCRIT 27.8 % (38.2-49.6); HEMOGLOBIN 9.3 g/dL (14.0-18.0); LYMPHOCYTES % 6.8 % (18.0-39.1); MEAN CORPUSCULAR HEMOGLOBIN 31.6 pg (28-32); MEAN CORPUSCULAR HGB CONC 33.5 g/dL (31-35); MEAN CORPUSCULAR VOLUME 94.6 fL (81-99); MONOCYTES # (AUTO) 1.1 (0.2-0.8); MONOCYTES % 7.2 % (4.4-11.3); NEUTROPHILS # (AUTO) 11.7 (2.1-6.9); NEUTROPHILS % 79.7 % (38.7-80.0); PLATELET COUNT 230 x10e3/uL (140-360); RED BLOOD COUNT 2.94 x10e6/uL (4.3-5.7); RED CELL DISTRIBUTION WIDTH 16.2 % (11.7-14.4)
[2020-04-01 04:56] LABS: ANION GAP 16.3 mmol/L (8-16); CALCIUM 7.5 mg/dL (8.4-10.2); CREATININE, SERUM 3.16 mg/dL (0.72-1.25); POTASSIUM 4.3 mmol/L (3.5-5.1)
[2020-04-01] MEDS: METOCLOPRAMIDE HCL 10 MG/2ML VIAL IV SCH ×3 (07:47→17:15)
[2020-04-01] MEDS: ASPIRIN 81 MG CHEW TAB PO SCH (08:02)
[2020-04-01] MEDS: MEROPENEM 500MG/ NS 50ML 50 ML IV SCH ×2 (08:02→21:03)
[2020-04-01] MEDS: PHENYLEPHRINE 10MG/ML VIAL 40 MG in DEXTROSE 5% 250ML 250 ML IV SCH ×2 (08:50→22:10)
[2020-04-01] MEDS: ACETAMINOPHEN 325 MG TAB PO PRN ×2 (15:08→21:39)
[2020-04-01] MEDS: INSULIN GLARGINE 100 UNITS/ML VIAL SQ SCH (21:04)
[2020-04-02] VITALS (27 sets, daily range): BP systolic 103–162; BP diastolic 42–64
[2020-04-02] MEDS: METOCLOPRAMIDE HCL 10 MG/2ML VIAL IV SCH ×5 (00:26→23:40)
[2020-04-02] MEDS: INSULIN REGULAR, HUMAN 3ML VL 100 UNIT in SODIUM CHLORIDE 0.9% 100 ML 100 ML IV SCH ×2 (03:11)
[2020-04-02 04:39] LABS: BASOPHILS # (AUTO) 0.1 (0.0-0.1); BASOPHILS % 0.5 % (0.0-1.0); EOSINOPHILS # (AUTO) 0.1 (0.0-0.4); EOSINOPHILS % 0.5 % (0.0-6.0); HEMATOCRIT 29.5 % (38.2-49.6); HEMOGLOBIN 9.5 g/dL (14.0-18.0); LYMPHOCYTES # (AUTO) 1.4 (1.0-3.2); LYMPHOCYTES % 9.5 % (18.0-39.1); MEAN CORPUSCULAR HGB CONC 32.2 g/dL (31-35); MEAN CORPUSCULAR VOLUME 96.4 fL (81-99); MONOCYTES # (AUTO) 1.2 (0.2-0.8); MONOCYTES % 7.6 % (4.4-11.3); NEUTROPHILS # (AUTO) 11.9 (2.1-6.9); NEUTROPHILS % 79.2 % (38.7-80.0); PLATELET COUNT 324 x10e3/uL (140-360); RED BLOOD COUNT 3.06 x10e6/uL (4.3-5.7); RED CELL DISTRIBUTION WIDTH 17.1 % (11.7-14.4)
[2020-04-02 05:09] LABS: ALBUMIN 1.7 g/dL (3.5-5.0); ALBUMIN/GLOBULIN RATIO 0.4 (0.8-2.0); ANION GAP 15.5 mmol/L (8-16); CALCIUM 7.7 mg/dL (8.4-10.2); CREATININE, SERUM 2.65 mg/dL (0.72-1.25); POTASSIUM 4.5 mmol/L (3.5-5.1)
[2020-04-02] MEDS ORDERED: DEXMEDETOMIDINE HCL 200 MCG in SODIUM CHLORIDE 0.9% 50ML 48 ML IV PRN (05:15)
[2020-04-02] MEDS ORDERED: DEXMEDETOMIDINE 200MCG/NS 50ML 50 ML IV ONE (05:33)
[2020-04-02] MEDS: MEROPENEM 500MG/ NS 50ML 50 ML IV SCH ×2 (08:15→21:00)
[2020-04-02] MEDS: ASPIRIN 81 MG CHEW TAB PO SCH (08:15)
[2020-04-02] MEDS: AMIODARONE 900MG 500 ML IV SCH (11:16)
[2020-04-02] MEDS: PHENYLEPHRINE 10MG/ML VIAL 40 MG in DEXTROSE 5% 250ML 250 ML IV SCH (11:16)
[2020-04-02] MEDS: ACETAMINOPHEN 325 MG TAB PO PRN ×2 (15:08→21:06)
[2020-04-02 17:00] LABS: ABG PH 7.31 (7.35-7.45)
[2020-04-02 17:01] LABS: ABG HCO3 27 mmol/L (22-26); ABG PCO2 53 mmHg (35-45); ABG PO2 88 mmHg (80-105); ABG TCO2 28
[2020-04-02] MEDS: INSULIN GLARGINE 100 UNITS/ML VIAL SQ SCH (21:21)
[2020-04-03] VITALS (26 sets, daily range): BP systolic 139–170; BP diastolic 52–69
[2020-04-03] MEDS: PHENYLEPHRINE 10MG/ML VIAL 40 MG in DEXTROSE 5% 250ML 250 ML IV SCH ×2 (00:50→11:25)
[2020-04-03 04:50] LABS: ALBUMIN 1.7 g/dL (3.5-5.0); ALBUMIN/GLOBULIN RATIO 0.4 (0.8-2.0); ANION GAP 14.6 mmol/L (8-16); CALCIUM 7.5 mg/dL (8.4-10.2); CREATININE, SERUM 1.83 mg/dL (0.72-1.25); POTASSIUM 4.6 mmol/L (3.5-5.1)
[2020-04-03] MEDS: METOCLOPRAMIDE HCL 10 MG/2ML VIAL IV SCH ×4 (05:44→23:24)
[2020-04-03] MEDS: MEROPENEM 500MG/ NS 50ML 50 ML IV SCH ×2 (08:18→22:59)
[2020-04-03] MEDS: ASPIRIN 81 MG CHEW TAB PO SCH (08:18)
[2020-04-03] MEDS: AMIODARONE 900MG 500 ML IV SCH (08:18)
[2020-04-03] MEDS: CALCIUM CARBONATE 500 MG CHEWABLE TABS PO SCH ×2 (14:38→21:00)
[2020-04-03] MEDS: INSULIN GLARGINE 100 UNITS/ML VIAL SQ SCH (23:23)
[2020-04-03] MEDS: ACETAMINOPHEN 325 MG TAB PO PRN (23:45)
[2020-04-04] VITALS (27 sets, daily range): BP systolic 118–174; BP diastolic 45–85
[2020-04-04] MEDS: PHENYLEPHRINE 10MG/ML VIAL 40 MG in DEXTROSE 5% 250ML 250 ML IV SCH (03:30)
[2020-04-04] MEDS ORDERED: DIATRIZOATE MEGL/DIATRIZOA SOD 30 ML BTL PO ONE (03:51)
[2020-04-04 05:51] LABS: BASOPHILS # (AUTO) 0.1 (0.0-0.1); BASOPHILS % 0.6 % (0.0-1.0); EOSINOPHILS # (AUTO) 0.1 (0.0-0.4); EOSINOPHILS % 0.6 % (0.0-6.0); HEMATOCRIT 28.7 % (38.2-49.6); HEMOGLOBIN 9.1 g/dL (14.0-18.0); LYMPHOCYTES # (AUTO) 1.5 (1.0-3.2); LYMPHOCYTES % 12.2 % (18.0-39.1); MEAN CORPUSCULAR HEMOGLOBIN 31.7 pg (28-32); MEAN CORPUSCULAR HGB CONC 31.7 g/dL (31-35); MONOCYTES # (AUTO) 0.9 (0.2-0.8); MONOCYTES % 7.5 % (4.4-11.3); NEUTROPHILS # (AUTO) 9.8 (2.1-6.9); NEUTROPHILS % 78.3 % (38.7-80.0); PLATELET COUNT 390 x10e3/uL (140-360); RED BLOOD COUNT 2.87 x10e6/uL (4.3-5.7); RED CELL DISTRIBUTION WIDTH 17.6 % (11.7-14.4)
[2020-04-04 06:11] LABS: ANION GAP 14.6 mmol/L (8-16); CALCIUM 8.1 mg/dL (8.4-10.2); CREATININE, SERUM 1.6 mg/dL (0.72-1.25); POTASSIUM 4.6 mmol/L (3.5-5.1)
[2020-04-04] MEDS: METOCLOPRAMIDE HCL 10 MG/2ML VIAL IV SCH ×4 (07:45→23:42)
[2020-04-04] MEDS ORDERED: DEXTROSE 5% 1,000 ML IV SCH (09:15)
[2020-04-04] MEDS ORDERED: DEXTROSE 50% SYRINGE 50 ML IV PRN (09:30)
[2020-04-04] MEDS: ASPIRIN 81 MG CHEW TAB PO SCH (09:52)
[2020-04-04] MEDS: MEROPENEM 500MG/ NS 50ML 50 ML IV SCH ×2 (09:52→23:30)
[2020-04-04] MEDS: CALCIUM CARBONATE 500 MG CHEWABLE TABS PO SCH ×3 (09:52→23:30)
[2020-04-04] MEDS: INSULIN LISPRO 100 UNIT/1 ML 3ML VIAL SQ SCH ×3 (11:53→23:31)
[2020-04-04 12:23] LABS: ABG HCO3 30 mmol/L (22-26); ABG PCO2 41 mmHg (35-45); ABG PH 7.48 (7.35-7.45); ABG PO2 108 mmHg (80-105); ABG TCO2 31
[2020-04-04 12:24] LABS: ABG HCO3 28 mmol/L (22-26); ABG PCO2 34 mmHg (35-45); ABG PH 7.53 (7.35-7.45); ABG PO2 57 mmHg (80-105); ABG TCO2 29
[2020-04-04] MEDS ORDERED: LIDOCAINE HCL 1% LOCAL INJ 20 ML VIAL ONE (12:42)
[2020-04-04] MEDS ORDERED: HEPARIN SOD (PORCINE) 1000 UNIT/ML SDV ONE (12:56)
[2020-04-04] MEDS: ACETAMINOPHEN 325 MG TAB PO PRN (16:00)
[2020-04-04] MEDS: AMIODARONE HCL 200 MG TAB PO SCH (16:14)
[2020-04-04] MEDS: INSULIN GLARGINE 100 UNITS/ML VIAL SQ SCH (23:32)
[2020-04-05] VITALS (24 sets, daily range): BP systolic 144–174; BP diastolic 62–72
[2020-04-05 04:53] LABS: BASOPHILS # (AUTO) 0.1 (0.0-0.1); BASOPHILS % 0.7 % (0.0-1.0); EOSINOPHILS % 0.3 % (0.0-6.0); HEMATOCRIT 30.3 % (38.2-49.6); HEMOGLOBIN 9.7 g/dL (14.0-18.0); LYMPHOCYTES # (AUTO) 1.4 (1.0-3.2); LYMPHOCYTES % 13.1 % (18.0-39.1); MEAN CORPUSCULAR HEMOGLOBIN 31.8 pg (28-32); MEAN CORPUSCULAR VOLUME 99.3 fL (81-99); MONOCYTES # (AUTO) 0.6 (0.2-0.8); NEUTROPHILS # (AUTO) 8.2 (2.1-6.9); NEUTROPHILS % 79.3 % (38.7-80.0); PLATELET COUNT 396 x10e3/uL (140-360); RED BLOOD COUNT 3.05 x10e6/uL (4.3-5.7); RED CELL DISTRIBUTION WIDTH 17.3 % (11.7-14.4)
[2020-04-05 05:13] LABS: ANION GAP 16.5 mmol/L (8-16); CALCIUM 8.1 mg/dL (8.4-10.2); CREATININE, SERUM 1.66 mg/dL (0.72-1.25); POTASSIUM 4.5 mmol/L (3.5-5.1)
[2020-04-05] MEDS: METOCLOPRAMIDE HCL 10 MG/2ML VIAL IV SCH ×3 (05:53→17:07)
[2020-04-05] MEDS: INSULIN LISPRO 100 UNIT/1 ML 3ML VIAL SQ SCH ×4 (05:53→22:17)
[2020-04-05] MEDS: ACETAMINOPHEN 325 MG TAB PO PRN ×3 (06:40→18:02)
[2020-04-05] MEDS: ASPIRIN 81 MG CHEW TAB PO SCH (09:08)
[2020-04-05] MEDS: AMIODARONE HCL 200 MG TAB PO SCH ×2 (09:09→17:07)
[2020-04-05] MEDS: CALCIUM CARBONATE 500 MG CHEWABLE TABS PO SCH ×3 (09:09→22:01)
[2020-04-05] MEDS: MEROPENEM 500MG/ NS 50ML 50 ML IV SCH (09:16)
[2020-04-05] MEDS ORDERED: FONDAPARINUX SODIUM 2.5 MG/0.5 ML SYR SQ ONE (12:30)
[2020-04-05] MEDS: PIPERACILLIN/TAZO 2.25 GM 50 ML IV SCH ×2 (15:39→22:03)
[2020-04-05] MEDS: AMLODIPINE BESYLATE 5 MG TAB PO SCH (15:40)
[2020-04-05] MEDS: DEXTROSE 5% 1,000 ML IV SCH (15:40)
[2020-04-05] MEDS: INSULIN GLARGINE 100 UNITS/ML VIAL SQ SCH (22:17)
[2020-04-06] VITALS (21 sets, daily range): BP systolic 134–159; BP diastolic 60–84
[2020-04-06] MEDS: METOCLOPRAMIDE HCL 10 MG/2ML VIAL IV SCH ×4 (00:29→17:22)
[2020-04-06] MEDS: ACETAMINOPHEN 325 MG TAB PO PRN (03:55)
[2020-04-06] MEDS: INSULIN LISPRO 100 UNIT/1 ML 3ML VIAL SQ SCH ×4 (04:14→21:49)
[2020-04-06] MEDS: DEXTROSE 5% 1,000 ML IV SCH ×3 (05:16→21:51)
[2020-04-06] MEDS: PIPERACILLIN/TAZO 2.25 GM 50 ML IV SCH (05:33)
[2020-04-06 05:47] LABS: BASOPHILS # (AUTO) 0.1 (0.0-0.1); BASOPHILS % 0.7 % (0.0-1.0); EOSINOPHILS # (AUTO) 0.2 (0.0-0.4); EOSINOPHILS % 1.3 % (0.0-6.0); HEMATOCRIT 29.3 % (38.2-49.6); HEMOGLOBIN 9.2 g/dL (14.0-18.0); LYMPHOCYTES # (AUTO) 1.6 (1.0-3.2); MEAN CORPUSCULAR HEMOGLOBIN 32.1 pg (28-32); MEAN CORPUSCULAR HGB CONC 31.4 g/dL (31-35); MEAN CORPUSCULAR VOLUME 102.1 fL (81-99); MONOCYTES # (AUTO) 0.6 (0.2-0.8); MONOCYTES % 5.3 % (4.4-11.3); NEUTROPHILS # (AUTO) 8.7 (2.1-6.9); NEUTROPHILS % 78.1 % (38.7-80.0); PLATELET COUNT 348 x10e3/uL (140-360); RED BLOOD COUNT 2.87 x10e6/uL (4.3-5.7); RED CELL DISTRIBUTION WIDTH 17.4 % (11.7-14.4)
[2020-04-06 06:00] LABS: ANION GAP 16.3 mmol/L (8-16); CALCIUM 8.1 mg/dL (8.4-10.2); CREATININE, SERUM 1.98 mg/dL (0.72-1.25); POTASSIUM 4.3 mmol/L (3.5-5.1)
[2020-04-06] MEDS: CALCIUM CARBONATE 500 MG CHEWABLE TABS PO SCH ×3 (08:08→21:39)
[2020-04-06] MEDS: AMIODARONE HCL 200 MG TAB PO SCH ×2 (08:08→16:53)
[2020-04-06] MEDS: ASPIRIN 81 MG CHEW TAB PO SCH (08:08)
[2020-04-06] MEDS ORDERED: FONDAPARINUX SODIUM 2.5 MG/0.5 ML SYR SQ SCH ×2 (09:00)
[2020-04-06] MEDS: AMLODIPINE BESYLATE 5 MG TAB PO SCH (09:29)
[2020-04-06 10:25] LABS: SODIUM 161 mmol/L (136-145)
[2020-04-06] MEDS: METOPROLOL TARTRATE 25 MG TAB PO SCH ×2 (10:25→21:39)
[2020-04-06 10:26] LABS: BLOOD UREA NITROGEN 62 mg/dL (7-26); GLUCOSE 360 mg/dL (74-118); OSMOLALITY,SERUM 351 mOsm/kg (278-305)
[2020-04-06] MEDS ORDERED: METOPROLOL TARTRATE 50 MG TAB ONE (10:31)
[2020-04-06 12:08] LABS: ABG PH 7.52 (7.35-7.45)
[2020-04-06 12:09] LABS: ABG HCO3 27 mmol/L (22-26); ABG PCO2 33 mmHg (35-45); ABG PO2 103 mmHg (80-105); ABG TCO2 28
[2020-04-06] MEDS: HYDROCHLOROTHIAZIDE 25 MG TAB PO SCH (15:24)
[2020-04-06] MEDS: LINEZOLID 600 MG/D5W 300ML 300 ML IV SCH (15:24)
[2020-04-06] MEDS ORDERED: FLUCONAZOLE 200 MG/100 ML 100 ML IV SCH (17:00)
[2020-04-06] MEDS ORDERED: HEPARIN 25,000 UNIT 1,000 UNIT in DEXTROSE 5% 250ML 250 ML IV SCH (18:15)
[2020-04-06] MEDS ORDERED: HEPARIN 25,000 UNIT 1,500 UNIT in DEXTROSE 5% 250ML 250 ML IV SCH (18:30)
[2020-04-06 18:43] LABS: BASOPHILS # (AUTO) 0.1 (0.0-0.1); BASOPHILS % 0.5 % (0.0-1.0); EOSINOPHILS # (AUTO) 0.2 (0.0-0.4); HEMOGLOBIN 8.9 g/dL (14.0-18.0); LYMPHOCYTES # (AUTO) 1.5 (1.0-3.2); LYMPHOCYTES % 12.5 % (18.0-39.1); MEAN CORPUSCULAR HEMOGLOBIN 31.8 pg (28-32); MEAN CORPUSCULAR HGB CONC 30.7 g/dL (31-35); MEAN CORPUSCULAR VOLUME 103.6 fL (81-99); MONOCYTES # (AUTO) 0.4 (0.2-0.8); MONOCYTES % 3.3 % (4.4-11.3); NEUTROPHILS # (AUTO) 9.5 (2.1-6.9); NEUTROPHILS % 81.2 % (38.7-80.0); PLATELET COUNT 285 x10e3/uL (140-360); RED CELL DISTRIBUTION WIDTH 17.1 % (11.7-14.4)
[2020-04-06 18:53] LABS: INR 1.22
[2020-04-06 18:54] LABS: PARTIAL THROMBOPLASTIN TIME 26.5 seconds (23.8-35.5)
[2020-04-06] MEDS ORDERED: HEPARIN SOD (PORCINE) 1000 UNIT/ML SDV IV ONE (19:30)
[2020-04-06] MEDS: HEPARIN 25,000 UNIT 1,000 UNIT in DEXTROSE 5% 250ML 250 ML IV SCH (20:10)
[2020-04-06] MEDS ORDERED: INSULIN GLARGINE 100 UNITS/ML VIAL SQ SCH (21:00)
[2020-04-07] VITALS (8 sets, daily range): BP systolic 115–137; BP diastolic 63–74
[2020-04-07] MEDS: METOCLOPRAMIDE HCL 10 MG/2ML VIAL IV SCH ×5 (01:13→23:18)
[2020-04-07] MEDS: LINEZOLID 600 MG/D5W 300ML 300 ML IV SCH ×2 (03:10→15:04)
[2020-04-07] MEDS ORDERED: DEXTROSE 5% 1,000 ML IV ONE (05:27)
[2020-04-07 05:45] LABS: BASOPHILS # (AUTO) 0.1 (0.0-0.1); BASOPHILS % 0.5 % (0.0-1.0); EOSINOPHILS # (AUTO) 0.4 (0.0-0.4); EOSINOPHILS % 3.5 % (0.0-6.0); HEMATOCRIT 28.5 % (38.2-49.6); LYMPHOCYTES # (AUTO) 1.8 (1.0-3.2); LYMPHOCYTES % 15.8 % (18.0-39.1); MEAN CORPUSCULAR HEMOGLOBIN 32.4 pg (28-32); MEAN CORPUSCULAR HGB CONC 31.6 g/dL (31-35); MEAN CORPUSCULAR VOLUME 102.5 fL (81-99); MONOCYTES # (AUTO) 0.4 (0.2-0.8); MONOCYTES % 3.5 % (4.4-11.3); NEUTROPHILS # (AUTO) 8.9 (2.1-6.9); PLATELET COUNT 279 x10e3/uL (140-360); RED BLOOD COUNT 2.78 x10e6/uL (4.3-5.7); RED CELL DISTRIBUTION WIDTH 16.7 % (11.7-14.4)
[2020-04-07] MEDS: DEXTROSE 5% 1,000 ML IV SCH ×3 (06:05→22:31)
[2020-04-07 06:11] LABS: ALBUMIN/GLOBULIN RATIO 0.5 (0.8-2.0); ANION GAP 15.2 mmol/L (8-16); CALCIUM 8.2 mg/dL (8.4-10.2); CREATININE, SERUM 2.01 mg/dL (0.72-1.25); POTASSIUM 3.2 mmol/L (3.5-5.1)
[2020-04-07] MEDS: ACETAMINOPHEN 325 MG TAB PO PRN ×2 (06:41→17:02)
[2020-04-07] MEDS: INSULIN LISPRO 100 UNIT/1 ML 3ML VIAL SQ SCH ×4 (08:03→20:43)
[2020-04-07] MEDS: AMIODARONE HCL 200 MG TAB PO SCH ×2 (08:03→17:02)
[2020-04-07] MEDS: HYDROCHLOROTHIAZIDE 25 MG TAB PO SCH (08:03)
[2020-04-07] MEDS: ASPIRIN 81 MG CHEW TAB PO SCH (08:03)
[2020-04-07] MEDS: CALCIUM CARBONATE 500 MG CHEWABLE TABS PO SCH ×3 (08:03→20:43)
[2020-04-07] MEDS: AMLODIPINE BESYLATE 5 MG TAB PO SCH (08:03)
[2020-04-07] MEDS: METOPROLOL TARTRATE 25 MG TAB PO SCH ×2 (08:04→20:43)
[2020-04-07 09:21] LABS: BASOPHILS # (AUTO) 0.1 (0.0-0.1); BASOPHILS % 0.7 % (0.0-1.0); EOSINOPHILS # (AUTO) 0.5 (0.0-0.4); EOSINOPHILS % 3.8 % (0.0-6.0); HEMATOCRIT 30.1 % (38.2-49.6); HEMOGLOBIN 9.1 g/dL (14.0-18.0); LYMPHOCYTES # (AUTO) 1.5 (1.0-3.2); LYMPHOCYTES % 12.3 % (18.0-39.1); MEAN CORPUSCULAR HEMOGLOBIN 31.3 pg (28-32); MEAN CORPUSCULAR HGB CONC 30.2 g/dL (31-35); MEAN CORPUSCULAR VOLUME 103.4 fL (81-99); MONOCYTES # (AUTO) 0.4 (0.2-0.8); NEUTROPHILS % 79.6 % (38.7-80.0); PLATELET COUNT 290 x10e3/uL (140-360); RED BLOOD COUNT 2.91 x10e6/uL (4.3-5.7); RED CELL DISTRIBUTION WIDTH 16.9 % (11.7-14.4)
[2020-04-07] MEDS ORDERED: HYDROCHLOROTHIAZIDE 25 MG TAB PO SCH (14:00)
[2020-04-07] MEDS ORDERED: POTASSIUM CHLORIDE 20MEQ/15ML UDC NG STA (14:21)
[2020-04-07] MEDS ORDERED: KCL 20 MEQ PACKET/ ORAL SOLN NG ONE (15:00)
[2020-04-07] MEDS ORDERED: DEXTROSE 50% SYRINGE 50 ML IV PRN (16:45)
[2020-04-07 17:06] LABS: INR 1.26; PROTHROMBIN TIME 16.6 seconds (11.9-14.5)
[2020-04-07] MEDS: HEPARIN 25,000 UNIT 1,000 UNIT in DEXTROSE 5% 250ML 250 ML IV SCH (20:42)
[2020-04-07] MEDS ORDERED: INSULIN GLARGINE 100 UNITS/ML VIAL SQ SCH (21:00)
[2020-04-08 03:00] VITALS: BP 114/71
[2020-04-08] MEDS: LINEZOLID 600 MG/D5W 300ML 300 ML IV SCH ×2 (03:13→14:17)
[2020-04-08 05:18] LABS: BASOPHILS # (AUTO) 0.1 (0.0-0.1); BASOPHILS % 0.5 % (0.0-1.0); EOSINOPHILS # (AUTO) 0.8 (0.0-0.4); HEMATOCRIT 28.7 % (38.2-49.6); HEMOGLOBIN 8.7 g/dL (14.0-18.0); LYMPHOCYTES # (AUTO) 1.9 (1.0-3.2); LYMPHOCYTES % 14.1 % (18.0-39.1); MEAN CORPUSCULAR HEMOGLOBIN 31.2 pg (28-32); MEAN CORPUSCULAR HGB CONC 30.3 g/dL (31-35); MEAN CORPUSCULAR VOLUME 102.9 fL (81-99); MONOCYTES # (AUTO) 0.4 (0.2-0.8); MONOCYTES % 3.3 % (4.4-11.3); NEUTROPHILS % 75.5 % (38.7-80.0); PLATELET COUNT 268 x10e3/uL (140-360); RED BLOOD COUNT 2.79 x10e6/uL (4.3-5.7); RED CELL DISTRIBUTION WIDTH 16.5 % (11.7-14.4)
[2020-04-08] MEDS: DEXTROSE 5% 1,000 ML IV SCH ×2 (05:21→14:16)
[2020-04-08] MEDS: METOCLOPRAMIDE HCL 10 MG/2ML VIAL IV SCH ×4 (05:21→20:30)
[2020-04-08 05:32] LABS: ALBUMIN/GLOBULIN RATIO 0.5 (0.8-2.0); ANION GAP 13.1 mmol/L (8-16); CALCIUM 8.2 mg/dL (8.4-10.2); CREATININE, SERUM 1.93 mg/dL (0.72-1.25); POTASSIUM 3.1 mmol/L (3.5-5.1)
[2020-04-08 08:14] VITALS: BP 130/73
[2020-04-08] MEDS: HEPARIN 25,000 UNIT 1,000 UNIT in DEXTROSE 5% 250ML 250 ML IV SCH (08:20)
[2020-04-08 08:28] VITALS: BP 130/73
[2020-04-08] MEDS: INSULIN LISPRO 100 UNIT/1 ML 3ML VIAL SQ SCH ×4 (08:48→20:48)
[2020-04-08] MEDS: AMIODARONE HCL 200 MG TAB PO SCH ×2 (08:48→17:00)
[2020-04-08] MEDS: ASPIRIN 81 MG CHEW TAB PO SCH (08:48)
[2020-04-08] MEDS: CALCIUM CARBONATE 500 MG CHEWABLE TABS PO SCH ×3 (08:49→20:47)
[2020-04-08] MEDS: METOPROLOL TARTRATE 25 MG TAB PO SCH ×2 (08:49→20:46)
[2020-04-08] MEDS: AMLODIPINE BESYLATE 5 MG TAB PO SCH (08:49)
[2020-04-08] MEDS: HYDROCHLOROTHIAZIDE 25 MG TAB PO SCH (08:49)
[2020-04-08 12:30] VITALS: BP 110/63
[2020-04-08 14:29] LABS: INR 1.14; PROTHROMBIN TIME 15.4 seconds (11.9-14.5)
[2020-04-08] MEDS ORDERED: KCL 20 MEQ PACKET/ ORAL SOLN NG NR (15:15)
[2020-04-08] MEDS ORDERED: WARFARIN SOD 5 MG TAB PO SCH (17:00)
[2020-04-08 19:57] VITALS: BP 113/68
[2020-04-08 20:15] VITALS: BP 113/68
[2020-04-08] MEDS: ACETAMINOPHEN 325 MG TAB PO PRN (20:30)
[2020-04-08] MEDS: INSULIN GLARGINE 100 UNITS/ML VIAL SQ SCH (20:47)
[2020-04-08] MEDS ORDERED: HALOPERIDOL LACTATE 5 MG/ML VIAL IV PRN (23:00)
[2020-04-09] VITALS (13 sets, daily range): BP systolic 82–131; BP diastolic 42–102
[2020-04-09] MEDS: DEXTROSE 5% 1,000 ML IV SCH ×3 (02:00→21:21)
[2020-04-09] MEDS: HEPARIN 25,000 UNIT 1,000 UNIT in DEXTROSE 5% 250ML 250 ML IV SCH (02:04)
[2020-04-09] MEDS: LINEZOLID 600 MG/D5W 300ML 300 ML IV SCH ×2 (03:44→17:02)
[2020-04-09 06:46] LABS: BASOPHILS # (AUTO) 0.1 (0.0-0.1); BASOPHILS % 0.6 % (0.0-1.0); EOSINOPHILS # (AUTO) 0.3 (0.0-0.4); EOSINOPHILS % 2.2 % (0.0-6.0); LYMPHOCYTES # (AUTO) 2.1 (1.0-3.2); LYMPHOCYTES % 15.1 % (18.0-39.1); MEAN CORPUSCULAR HEMOGLOBIN 31.3 pg (28-32); MEAN CORPUSCULAR VOLUME 104.2 fL (81-99); MONOCYTES # (AUTO) 0.5 (0.2-0.8); MONOCYTES % 3.3 % (4.4-11.3); NEUTROPHILS # (AUTO) 10.8 (2.1-6.9); NEUTROPHILS % 78.3 % (38.7-80.0); PLATELET COUNT 231 x10e3/uL (140-360); RED BLOOD COUNT 1.92 x10e6/uL (4.3-5.7)
[2020-04-09] MEDS: METOCLOPRAMIDE HCL 10 MG/2ML VIAL IV SCH ×3 (06:55→18:00)
[2020-04-09] MEDS ORDERED: SODIUM CHLORIDE 0.9% 250ML 250 ML IV ONE (07:45)
[2020-04-09] MEDS: INSULIN LISPRO 100 UNIT/1 ML 3ML VIAL SQ SCH ×4 (08:00→21:41)
[2020-04-09] MEDS: PANTOPRAZOLE 40 MG 10ML VIAL IV SCH ×2 (08:11→21:39)
[2020-04-09] MEDS: HYDROCHLOROTHIAZIDE 25 MG TAB PO SCH (08:16)
[2020-04-09] MEDS: METOPROLOL TARTRATE 25 MG TAB PO SCH (08:16)
[2020-04-09] MEDS: AMLODIPINE BESYLATE 5 MG TAB PO SCH (08:17)
[2020-04-09] MEDS: CALCIUM CARBONATE 500 MG CHEWABLE TABS PO SCH ×3 (08:17→21:00)
[2020-04-09] MEDS: ASPIRIN 81 MG CHEW TAB PO SCH (08:29)
[2020-04-09 08:58] LABS: INR 1.41; PROTHROMBIN TIME 18.2 seconds (11.9-14.5)
[2020-04-09 08:59] LABS: PARTIAL THROMBOPLASTIN TIME 30.2 seconds (23.8-35.5)
[2020-04-09] MEDS: AMIODARONE HCL 200 MG TAB PO SCH ×2 (09:00→16:50)
[2020-04-09] MEDS ORDERED: PROTAMINE SULFATE 10 MG/ML 5 ML VIAL IV STA (09:20)
[2020-04-09] MEDS ORDERED: NOREPINEPHRINE 8 MG/D5W 250 ML 250 ML ONE (09:38)
[2020-04-09] MEDS ORDERED: SODIUM CHLORIDE 0.9% 250ML 250 ML IV SCH (10:00)
[2020-04-09] MEDS ORDERED: SODIUM BICARBONATE 8.4% INJ 50 ML SYR IV STA (10:14)
[2020-04-09 10:16] LABS: ABG HCO3 9 mmol/L (22-26); ABG PCO2 16 mmHg (35-45); ABG PH 7.34 (7.35-7.45); ABG PO2 119 mmHg (80-105); ABG TCO2 9
[2020-04-09] MEDS ORDERED: SODIUM BICARBONATE 8.4% SYRING 100 ML ONE (10:28)
[2020-04-09 11:10] LABS: ANION GAP 23.5 mmol/L (8-16); CALCIUM 7.3 mg/dL (8.4-10.2); CREATININE, SERUM 2.49 mg/dL (0.72-1.25); POTASSIUM 4.5 mmol/L (3.5-5.1)
[2020-04-09] MEDS ORDERED: CEFEPIME 1GM/NS 0.9% 50 ML 50 ML IV ONE (11:30)
[2020-04-09] MEDS: NOREPINEPHRINE 8 MG/D5W 250 ML 250 ML IV SCH ×2 (11:45→19:00)
[2020-04-09] MEDS ORDERED: OCTREOTIDE ACETATE 500 MCG in SODIUM CHLORIDE 0.9% 250ML 249 ML IV SCH (13:45)
[2020-04-09] MEDS ORDERED: CEFEPIME 1GM/NS 0.9% 50 ML 50 ML IV SCH (15:00)
[2020-04-09] MEDS ORDERED: HEPARIN SOD (PORCINE) 1000 UNIT/ML SDV IV PRN (17:15)
[2020-04-09] MEDS ORDERED: SODIUM CHLORIDE 0.9% 250ML 250 ML ONE (20:45)
[2020-04-09] MEDS: METRONIDAZOLE 500MG/NS 100ML 100 ML IV SCH (21:39)
[2020-04-09] MEDS: INSULIN GLARGINE 100 UNITS/ML VIAL SQ SCH (21:41)
[2020-04-10] VITALS (19 sets, daily range): BP systolic 105–147; BP diastolic 48–73
[2020-04-10] MEDS: METOCLOPRAMIDE HCL 10 MG/2ML VIAL IV SCH ×4 (00:15→19:50)
[2020-04-10 00:40] LABS: BASOPHILS # (AUTO) 0.1 (0.0-0.1); BASOPHILS % 0.3 % (0.0-1.0); EOSINOPHILS # (AUTO) 0.1 (0.0-0.4); EOSINOPHILS % 0.8 % (0.0-6.0); HEMATOCRIT 22.3 % (38.2-49.6); HEMOGLOBIN 7.4 g/dL (14.0-18.0); LYMPHOCYTES # (AUTO) 1.5 (1.0-3.2); LYMPHOCYTES % 10.2 % (18.0-39.1); MEAN CORPUSCULAR HGB CONC 33.2 g/dL (31-35); MEAN CORPUSCULAR VOLUME 93.3 fL (81-99); MONOCYTES # (AUTO) 0.6 (0.2-0.8); MONOCYTES % 3.9 % (4.4-11.3); NEUTROPHILS # (AUTO) 12.2 (2.1-6.9); PLATELET COUNT 116 x10e3/uL (140-360); RED BLOOD COUNT 2.39 x10e6/uL (4.3-5.7); RED CELL DISTRIBUTION WIDTH 16.4 % (11.7-14.4)
[2020-04-10] MEDS ORDERED: PANTOPRAZOLE 40 MG 10ML VIAL IV STA (01:26)
[2020-04-10] MEDS: METRONIDAZOLE 500MG/NS 100ML 100 ML IV SCH ×4 (01:39→19:50)
[2020-04-10] MEDS: LINEZOLID 600 MG/D5W 300ML 300 ML IV SCH ×2 (02:44→15:30)
[2020-04-10] MEDS: INSULIN LISPRO 100 UNIT/1 ML 3ML VIAL SQ SCH ×3 (03:26→22:32)
[2020-04-10] MEDS ORDERED: PANTOPRAZOLE 40 MG 10ML VIAL ONE (04:56)
[2020-04-10] MEDS ORDERED: SODIUM CHLORIDE 0.9% 250ML 0 ML ONE (04:56)
[2020-04-10] MEDS: PANTOPRAZOL 40MG/SOD CHL 0.9% 250 ML IV SCH ×2 (05:11→09:25)
[2020-04-10 05:45] LABS: BASOPHILS % 0.2 % (0.0-1.0); EOSINOPHILS # (AUTO) 0.1 (0.0-0.4); HEMATOCRIT 21.5 % (38.2-49.6); HEMOGLOBIN 7.1 g/dL (14.0-18.0); LYMPHOCYTES # (AUTO) 1.2 (1.0-3.2); LYMPHOCYTES % 9.4 % (18.0-39.1); MEAN CORPUSCULAR HEMOGLOBIN 31.6 pg (28-32); MEAN CORPUSCULAR VOLUME 95.6 fL (81-99); MONOCYTES # (AUTO) 0.5 (0.2-0.8); MONOCYTES % 3.9 % (4.4-11.3); NEUTROPHILS # (AUTO) 10.5 (2.1-6.9); NEUTROPHILS % 84.6 % (38.7-80.0); PLATELET COUNT 104 x10e3/uL (140-360); RED BLOOD COUNT 2.25 x10e6/uL (4.3-5.7); RED CELL DISTRIBUTION WIDTH 16.5 % (11.7-14.4)
[2020-04-10 06:36] LABS: ANION GAP 14.1 mmol/L (8-16); CREATININE, SERUM 2.14 mg/dL (0.72-1.25); POTASSIUM 3.1 mmol/L (3.5-5.1)
[2020-04-10 06:47] LABS: CALCIUM 6.9 mg/dL (8.4-10.2)
[2020-04-10] MEDS ORDERED: SODIUM CHLORIDE 0.9% 250ML 250 ML IV ONE (08:30)
[2020-04-10] MEDS: CALCIUM CARBONATE 500 MG CHEWABLE TABS PO SCH ×3 (08:40→21:00)
[2020-04-10] MEDS: AMIODARONE HCL 200 MG TAB PO SCH ×2 (08:40→17:00)
[2020-04-10] MEDS ORDERED: POTASSIUM CHLORIDE 20MEQ/100ML 100 ML IV ONE (12:00)
[2020-04-10] MEDS ORDERED: SODIUM CHLORIDE 0.9% 250ML 250 ML ONE ×2 (12:09→18:51)
[2020-04-10] MEDS: CEFEPIME 1GM/NS 0.9% 50 ML 50 ML IV SCH (12:30)
[2020-04-10] MEDS ORDERED: PHYTONADIONE 10 MG/ML AMP IV ONE (18:00)
[2020-04-10 19:44] LABS: INR 1.26; PROTHROMBIN TIME 16.6 seconds (11.9-14.5)
[2020-04-10] MEDS ORDERED: PHYTONADIONE 10MG/ML 2 ML ONE (22:27)
[2020-04-10] MEDS ORDERED: SODIUM CHLORIDE 0.9% 100 ML ONE (22:28)
[2020-04-10] MEDS: INSULIN GLARGINE 100 UNITS/ML VIAL SQ SCH (22:33)
[2020-04-10] MEDS: DEXTROSE 5% 1,000 ML IV SCH ×2 (23:14→23:47)
[2020-04-11] VITALS (16 sets, daily range): BP systolic 117–139; BP diastolic 50–72
[2020-04-11] MEDS: METRONIDAZOLE 500MG/NS 100ML 100 ML IV SCH ×3 (00:40→13:27)
[2020-04-11] MEDS: METOCLOPRAMIDE HCL 10 MG/2ML VIAL IV SCH ×4 (00:40→17:46)
[2020-04-11] MEDS: LINEZOLID 600 MG/D5W 300ML 300 ML IV SCH ×2 (02:43→16:31)
[2020-04-11 05:00] LABS: BASOPHILS % 0.2 % (0.0-1.0); EOSINOPHILS # (AUTO) 0.3 (0.0-0.4); EOSINOPHILS % 2.5 % (0.0-6.0); HEMATOCRIT 26.8 % (38.2-49.6); LYMPHOCYTES # (AUTO) 1.3 (1.0-3.2); LYMPHOCYTES % 11.7 % (18.0-39.1); MEAN CORPUSCULAR HEMOGLOBIN 30.8 pg (28-32); MEAN CORPUSCULAR HGB CONC 33.6 g/dL (31-35); MEAN CORPUSCULAR VOLUME 91.8 fL (81-99); MONOCYTES # (AUTO) 0.5 (0.2-0.8); MONOCYTES % 4.9 % (4.4-11.3); NEUTROPHILS # (AUTO) 8.6 (2.1-6.9); NEUTROPHILS % 79.9 % (38.7-80.0); PLATELET COUNT 99 x10e3/uL (140-360); RED BLOOD COUNT 2.92 x10e6/uL (4.3-5.7); RED CELL DISTRIBUTION WIDTH 16.5 % (11.7-14.4)
[2020-04-11 05:27] LABS: CALCIUM IONIZED 1.1 mmol/L (1.09-1.30)
[2020-04-11 05:34] LABS: ANION GAP 12.8 mmol/L (8-16); CALCIUM 7.1 mg/dL (8.4-10.2); CREATININE, SERUM 1.62 mg/dL (0.72-1.25)
[2020-04-11 05:53] LABS: POTASSIUM 2.8 mmol/L (3.5-5.1)
[2020-04-11] MEDS ORDERED: POTASSIUM CHLORIDE 20MEQ/100ML 300 ML IV ONE (07:00)
[2020-04-11] MEDS: AMIODARONE HCL 200 MG TAB PO SCH ×2 (07:40→16:32)
[2020-04-11] MEDS: CALCIUM CARBONATE 500 MG CHEWABLE TABS PO SCH ×2 (07:40→14:30)
[2020-04-11] MEDS: INSULIN LISPRO 100 UNIT/1 ML 3ML VIAL SQ SCH ×4 (07:43→21:00)
[2020-04-11] MEDS: NOREPINEPHRINE 8 MG/D5W 250 ML 250 ML IV SCH (08:34)
[2020-04-11] MEDS ORDERED: PROPOFOL IV EMULSION 10 MG/ML 20 ML VIAL ONE (12:19)
[2020-04-11] MEDS ORDERED: LIDOCAINE HCL 2% LOCAL INJ 5 ML SDV VIAL INJ ONE (12:19)
[2020-04-11] MEDS: CEFEPIME 1GM/NS 0.9% 50 ML 50 ML IV SCH (13:28)
[2020-04-11] MEDS ORDERED: PANTOPRAZOL 40MG/SOD CHL 0.9% 50 ML IV SCH (14:45)
[2020-04-11 14:54] LABS: ANION GAP 10.2 mmol/L (8-16); CALCIUM 7.2 mg/dL (8.4-10.2); CREATININE, SERUM 1.48 mg/dL (0.72-1.25); POTASSIUM 3.2 mmol/L (3.5-5.1)
[2020-04-11] MEDS ORDERED: POTASSIUM CHLORIDE 20MEQ/100ML 100 ML IV ONE (16:30)
[2020-04-11] MEDS: FAMOTIDINE 20 MG/2 ML VIAL IV SCH (17:46)
[2020-04-11] MEDS: DEXTROSE 5% 1,000 ML IV SCH (17:56)
[2020-04-11] MEDS: INSULIN GLARGINE 100 UNITS/ML VIAL SQ SCH (21:00)
[2020-04-12] VITALS (12 sets, daily range): BP systolic 120–144; BP diastolic 58–85
[2020-04-12] MEDS: CALCIUM CARBONATE 500 MG CHEWABLE TABS PO SCH ×4 (00:13→21:21)
[2020-04-12] MEDS: METOCLOPRAMIDE HCL 10 MG/2ML VIAL IV SCH ×4 (00:13→17:10)
[2020-04-12 07:12] LABS: BASOPHILS % 0.4 % (0.0-1.0); EOSINOPHILS # (AUTO) 0.2 (0.0-0.4); EOSINOPHILS % 2.1 % (0.0-6.0); HEMOGLOBIN 9.3 g/dL (14.0-18.0); LYMPHOCYTES % 11.7 % (18.0-39.1); MEAN CORPUSCULAR HEMOGLOBIN 30.8 pg (28-32); MEAN CORPUSCULAR HGB CONC 33.2 g/dL (31-35); MEAN CORPUSCULAR VOLUME 92.7 fL (81-99); MONOCYTES # (AUTO) 0.5 (0.2-0.8); MONOCYTES % 6.2 % (4.4-11.3); NEUTROPHILS # (AUTO) 6.6 (2.1-6.9); NEUTROPHILS % 79.1 % (38.7-80.0); PLATELET COUNT 99 x10e3/uL (140-360); RED BLOOD COUNT 3.02 x10e6/uL (4.3-5.7); RED CELL DISTRIBUTION WIDTH 16.3 % (11.7-14.4)
[2020-04-12] MEDS: INSULIN LISPRO 100 UNIT/1 ML 3ML VIAL SQ SCH ×4 (07:30→21:27)
[2020-04-12] MEDS: AMIODARONE HCL 200 MG TAB PO SCH ×2 (08:49→17:10)
[2020-04-12 09:11] LABS: ANION GAP 14.5 mmol/L (8-16); CALCIUM 7.5 mg/dL (8.4-10.2); CREATININE, SERUM 1.45 mg/dL (0.72-1.25); POTASSIUM 3.5 mmol/L (3.5-5.1)
[2020-04-12] MEDS: FAMOTIDINE 20 MG/2 ML VIAL IV SCH ×2 (09:12→17:10)
[2020-04-12] MEDS: DEXTROSE 5% 1,000 ML IV SCH (13:40)
[2020-04-12] MEDS: INSULIN GLARGINE 100 UNITS/ML VIAL SQ SCH (21:26)
[2020-04-13] VITALS: BP 142/74
[2020-04-13] MEDS ORDERED: BISACODYL 5 MG TAB EC PO ONE ×2 (01:00→05:00)
[2020-04-13 04:00] VITALS: BP 131/83
[2020-04-13] MEDS: METOCLOPRAMIDE HCL 10 MG/2ML VIAL IV SCH ×3 (05:07→12:42)
[2020-04-13 05:32] LABS: BASOPHILS % 0.3 % (0.0-1.0); EOSINOPHILS # (AUTO) 0.1 (0.0-0.4); EOSINOPHILS % 1.9 % (0.0-6.0); HEMOGLOBIN 9.3 g/dL (14.0-18.0); LYMPHOCYTES # (AUTO) 1.5 (1.0-3.2); LYMPHOCYTES % 20.1 % (18.0-39.1); MEAN CORPUSCULAR HEMOGLOBIN 30.6 pg (28-32); MEAN CORPUSCULAR HGB CONC 33.2 g/dL (31-35); MEAN CORPUSCULAR VOLUME 92.1 fL (81-99); MONOCYTES # (AUTO) 0.6 (0.2-0.8); MONOCYTES % 7.8 % (4.4-11.3); NEUTROPHILS # (AUTO) 5.2 (2.1-6.9); NEUTROPHILS % 69.4 % (38.7-80.0); PLATELET COUNT 111 x10e3/uL (140-360); RED BLOOD COUNT 3.04 x10e6/uL (4.3-5.7); RED CELL DISTRIBUTION WIDTH 15.9 % (11.7-14.4)
[2020-04-13 06:08] LABS: ALBUMIN 2.2 g/dL (3.5-5.0); ALBUMIN/GLOBULIN RATIO 0.6 (0.8-2.0); ANION GAP 10.2 mmol/L (8-16); CALCIUM 7.4 mg/dL (8.4-10.2); CREATININE, SERUM 1.24 mg/dL (0.72-1.25); POTASSIUM 3.2 mmol/L (3.5-5.1)
[2020-04-13] MEDS: INSULIN LISPRO 100 UNIT/1 ML 3ML VIAL SQ SCH ×2 (07:30→12:45)
[2020-04-13 08:00] VITALS: BP 135/76
[2020-04-13] MEDS: CALCIUM CARBONATE 500 MG CHEWABLE TABS PO SCH (08:59)
[2020-04-13] MEDS: AMIODARONE HCL 200 MG TAB PO SCH (08:59)
[2020-04-13] MEDS: FAMOTIDINE 20 MG/2 ML VIAL IV SCH (08:59)
[2020-04-13 09:30] VITALS: BP 135/76
[2020-04-13] MEDS: DEXTROSE 5% 1,000 ML IV SCH (12:06)
[2020-04-13 12:30] VITALS: BP 148/82
== END 2020-04-13 14:30 | DRG 870 ==
LOC: ER 11:14 → ERHOLD 15:17 → ICU 17:46 → IMCU 04-06 20:42
PROVIDERS: ADMIT Internal Medicine; ATTEND Internal Medicine
PROC: 5A1955Z Respiratory Ventilation, Greater than 96 Consecutive Hours (ICD-10-PCS; principal; 2020-03-22)
PROC: 0BH17EZ Insertion of Endotracheal Airway into Trachea, Via Natural or Artificial Opening (ICD-10-PCS; 2020-03-22)
PROC: 02HV33Z Insertion of Infusion Device into Superior Vena Cava, Percutaneous Approach (ICD-10-PCS; 2020-03-23)
PROC: 5A2204Z Restoration of Cardiac Rhythm, Single (ICD-10-PCS; 2020-03-23)
PROC: 5A1D70Z Performance of Urinary Filtration, Intermittent, Less than 6 Hours Per Day (ICD-10-PCS; 2020-03-23)
PROC: 5A1D70Z Performance of Urinary Filtration, Intermittent, Less than 6 Hours Per Day (ICD-10-PCS; 2020-03-24)
PROC: 5A1D70Z Performance of Urinary Filtration, Intermittent, Less than 6 Hours Per Day (ICD-10-PCS; 2020-03-25)
PROC: 5A1D70Z Performance of Urinary Filtration, Intermittent, Less than 6 Hours Per Day (ICD-10-PCS; 2020-03-26)
PROC: 5A1D70Z Performance of Urinary Filtration, Intermittent, Less than 6 Hours Per Day (ICD-10-PCS; 2020-03-28)
PROC: 5A1D70Z Performance of Urinary Filtration, Intermittent, Less than 6 Hours Per Day (ICD-10-PCS; 2020-03-29)
PROC: 5A1D70Z Performance of Urinary Filtration, Intermittent, Less than 6 Hours Per Day (ICD-10-PCS; 2020-03-30)
PROC: 5A1D70Z Performance of Urinary Filtration, Intermittent, Less than 6 Hours Per Day (ICD-10-PCS; 2020-03-31)
PROC: 5A1D70Z Performance of Urinary Filtration, Intermittent, Less than 6 Hours Per Day (ICD-10-PCS; 2020-04-02)
PROC: 3E043XZ Introduction of Vasopressor into Central Vein, Percutaneous Approach (ICD-10-PCS; 2020-04-04)
PROC: 02HV33Z Insertion of Infusion Device into Superior Vena Cava, Percutaneous Approach (ICD-10-PCS; 2020-04-04)
PROC: B548ZZA Ultrasonography of Superior Vena Cava, Guidance (ICD-10-PCS; 2020-04-04)
PROC: 5A1D70Z Performance of Urinary Filtration, Intermittent, Less than 6 Hours Per Day (ICD-10-PCS; 2020-04-04)
PROC: 02HV33Z Insertion of Infusion Device into Superior Vena Cava, Percutaneous Approach (ICD-10-PCS; 2020-04-09)
PROC: 30233N1 Transfusion of Nonautologous Red Blood Cells into Peripheral Vein, Percutaneous Approach (ICD-10-PCS; 2020-04-09)
PROC: 30233K1 Transfusion of Nonautologous Frozen Plasma into Peripheral Vein, Percutaneous Approach (ICD-10-PCS; 2020-04-09)
PROC: 5A1D70Z Performance of Urinary Filtration, Intermittent, Less than 6 Hours Per Day (ICD-10-PCS; 2020-04-09)
PROC: 30233L1 Transfusion of Nonautologous Fresh Plasma into Peripheral Vein, Percutaneous Approach (ICD-10-PCS; 2020-04-10)
PROC: 0DJ08ZZ Inspection of Upper Intestinal Tract, Via Natural or Artificial Opening Endoscopic (ICD-10-PCS; 2020-04-11)
DX: A41.89 Other specified sepsis (principal); R65.21 Severe sepsis with septic shock; R57.1 Hypovolemic shock; K25.0 Acute gastric ulcer with hemorrhage; N17.0 Acute kidney failure with tubular necrosis; K72.00 Acute and subacute hepatic failure without coma; J10.01 Influenza due to other identified influenza virus with the same other identified influenza virus pneumonia; I50.21 Acute systolic (congestive) heart failure; J96.01 Acute respiratory failure with hypoxia; E87.2 Acidosis; E87.1 Hypo-osmolality and hyponatremia; N39.0 Urinary tract infection, site not specified; D62 Acute posthemorrhagic anemia; K86.1 Other chronic pancreatitis; Z16.12 Extended spectrum beta lactamase (ESBL) resistance; K56.7 Ileus, unspecified; E11.52 Type 2 diabetes mellitus with diabetic peripheral angiopathy with gangrene; I96 Gangrene, not elsewhere classified; Z68.41 Body mass index [BMI] 40.0-44.9, adult; D69.6 Thrombocytopenia, unspecified; E78.5 Hyperlipidemia, unspecified; Z20.822 Contact with and (suspected) exposure to COVID-19; I25.10 Atherosclerotic heart disease of native coronary artery without angina pectoris; Z95.5 Presence of coronary angioplasty implant and graft; K20.90 Esophagitis, unspecified without bleeding; K29.70 Gastritis, unspecified, without bleeding; G47.33 Obstructive sleep apnea (adult) (pediatric); Z85.72 Personal history of non-Hodgkin lymphomas; B96.20 Unspecified Escherichia coli [E. coli] as the cause of diseases classified elsewhere; E77.8 Other disorders of glycoprotein metabolism; E88.09 Other disorders of plasma-protein metabolism, not elsewhere classified; R77.1 Abnormality of globulin; E83.52 Hypercalcemia; E78.2 Mixed hyperlipidemia; I11.0 Hypertensive heart disease with heart failure; E66.01 Morbid (severe) obesity due to excess calories; I48.0 Paroxysmal atrial fibrillation; D72.823 Leukemoid reaction; E87.6 Hypokalemia
CPT/HCPCS: 31500; 36415; 36555; 36556; 36600; 43235; 70450; 71045; 71250; 74018; 74176; 74230; 74470; 76700; 76937; 77001; 78278; 80048; 80053; 81001; 82140; 82248; 82271; 82805; 82947; 82948; 83605; 83735; 83880; 83935; 84100; 84295; 84484; 84520; 85025; 85379; 85384; 85610; 85730; 86022; 86705; 86706; 86850; 86900; 86920; 87040; 87070; 87071; 87086; 87186; 87205; 87340; 87400; 90962; 93005; 93306; 93970; 94002; 94003; 96360; 96372; 97139; 99284; A9512; J0153; J0171; J0456; J0610; J0690; J0692; J0696; J1450; J1580; J1630; J1644; J1652; J1815; J1817; J1940; J2001; J2020; J2060; J2150; J2370; J2543; J2720; J2765; J2997; J3010; J3370; J3430; J3480; J7030; J7050; J7070; J7120; J7121; J7799; P9016; P9017; U0002

== ENCOUNTER 2020-05-26 12:07 | Emergency (ER) | payer BC ==
[~2020-05-26] VITALS: Ht 167.6 cm; Wt 118.8 kg
[2020-05-26] MEDS ORDERED: CLONIDINE HCL 0.1 MG TAB PO ONE (12:45)
[2020-05-26] MEDS ORDERED: CLONIDINE HCL 0.2 MG TAB ONE (12:48)
== END 2020-05-26 15:20 | disposition home or self-care (01) ==
LOC: ER 12:30
DX: I10 Essential (primary) hypertension (principal); E11.9 Type 2 diabetes mellitus without complications
CPT/HCPCS: 99282

== ENCOUNTER 2020-07-21 21:00 | Inpatient (IN) | payer SELFPAY ==
[~2020-07-21] VITALS: Ht 167.6 cm; Wt 95.3 kg
[2020-07-22] VITALS (7 sets, daily range): BP systolic 94–139; BP diastolic 54–75
[2020-07-22] MEDS ORDERED: PANTOPRAZOLE 40 MG 10ML VIAL IV STA (00:25)
[2020-07-22 00:50] LABS: BASOPHILS # (AUTO) 0.1 (0.0-0.1); BASOPHILS % 0.4 % (0.0-1.0); EOSINOPHILS # (AUTO) 0.1 (0.0-0.4); EOSINOPHILS % 0.6 % (0.0-6.0); LYMPHOCYTES # (AUTO) 3.4 (1.0-3.2); LYMPHOCYTES % 20.7 % (18.0-39.1); MEAN CORPUSCULAR HEMOGLOBIN 30.3 pg (28-32); MEAN CORPUSCULAR HGB CONC 32.6 g/dL (31-35); MEAN CORPUSCULAR VOLUME 93.1 fL (81-99); MONOCYTES # (AUTO) 1.1 (0.2-0.8); MONOCYTES % 6.5 % (4.4-11.3); NEUTROPHILS # (AUTO) 11.5 (2.1-6.9); NEUTROPHILS % 71.1 % (38.7-80.0); PLATELET COUNT 130 x10e3/uL (140-360); RED BLOOD COUNT 4.62 x10e6/uL (4.3-5.7); RED CELL DISTRIBUTION WIDTH 15.6 % (11.7-14.4)
[2020-07-22 00:58] LABS: INR 1.13; PROTHROMBIN TIME 15.1 seconds (11.9-14.5)
[2020-07-22] MEDS ORDERED: HEPARIN 25,000 UNIT DRIP IV ONE (00:58)
[2020-07-22 01:10] LABS: ALBUMIN 4.5 g/dL (3.5-5.0); ALBUMIN/GLOBULIN RATIO 1.1 (0.8-2.0); ANION GAP 22.3 mmol/L (8-16); CALCIUM 9.6 mg/dL (8.4-10.2); CREATININE, SERUM 2.98 mg/dL (0.72-1.25)
[2020-07-22 01:12] LABS: POTASSIUM 5.3 mmol/L (3.5-5.1)
[2020-07-22] MEDS: HEPARIN 25,000 UNIT 1,500 UNIT in DEXTROSE 5% 250ML 250 ML IV SCH ×2 (01:30→18:31)
[2020-07-22] MEDS ORDERED: SODIUM CHLORIDE 0.9% 1000ML 1,000 ML IV SCH ×3 (01:45→04:45)
[2020-07-22 02:17] LABS: CLARITY,URINE SL CLOUDY (CLEAR); COLOR,URINE YELLOW (YELLOW); KETONES,URINE NEGATIVE (NEGATIVE); LEUKOCYTE ESTERASE ,URINE SMALL (NEGATIVE); NITRITE,URINE NEGATIVE (NEGATIVE); PROTEIN,URINE DIPSTICK NEGATIVE (NEGATIVE); URINE UROBILINOGEN 0.2 mg/dL (0.2 - 1)
[2020-07-22 02:27] LABS: BACTERIA,URINE MODERATE /HPF; EPITHELIAL CELLS,URINE RARE /LPF; RBC,URINE 0-5 /HPF (0-5)
[2020-07-22] MEDS ORDERED: CEFTRIAXONE SOD 1 GM/50 ML BAG IV ONE (03:15)
[2020-07-22] MEDS ORDERED: CEFTRIAXONE SOD 1 GM 50 ML IV ONE (03:15)
[2020-07-22] MEDS ORDERED: CEFTRIAXONE SOD 1 GM VIAL ONE ×2 (03:38→21:48)
[2020-07-22] MEDS ORDERED: SODIUM CHLORIDE 0.9% 50ML 50 ML ONE ×2 (03:38→21:48)
[2020-07-22] MEDS ORDERED: METFORMIN HCL500 MG (04:46)
[2020-07-22] MEDS ORDERED: ATORVASTATIN CA80 MG (04:46)
[2020-07-22] MEDS ORDERED: FERROUS SULFAT325 MG (04:46)
[2020-07-22] MEDS ORDERED: K DUR10 MEQ (04:46)
[2020-07-22] MEDS ORDERED: LOSARTAN POTASS25 MG (04:46)
[2020-07-22] MEDS ORDERED: METOPROLOL SUCC50 MG (04:46)
[2020-07-22] MEDS ORDERED: AMIODARONE HCL200 MG (04:46)
[2020-07-22] MEDS ORDERED: FENOFIBRATE48 MG (04:46)
[2020-07-22] MEDS ORDERED: PANTOPRAZOLE SO40 MG (04:46)
[2020-07-22] MEDS ORDERED: FUROSEMIDE20 MG (04:46)
[2020-07-22] MEDS ORDERED: SOD POLYSTYRENE SULFONATE SUSP 15 GM/60 ML BTL PO ONE (05:00)
[2020-07-22] MEDS ORDERED: DEXTROSE 50% SYRINGE 50 ML IV PRN (06:15)
[2020-07-22] MEDS: INSULIN LISPRO 100 UNIT/1 ML 3ML VIAL SQ SCH ×4 (07:30→20:54)
[2020-07-22] MEDS: METOPROLOL SUCCINATE 50 MG TAB XL PO SCH (09:00)
[2020-07-22] MEDS ORDERED: PANTOPRAZOLE SOD 40 MG TABEC PO SCH (09:00)
[2020-07-22] MEDS: FENOFIBRATE 48 MG TAB PO SCH (09:10)
[2020-07-22] MEDS: AMIODARONE HCL 200 MG TAB PO SCH (09:12)
[2020-07-22] MEDS ORDERED: SODIUM BICARBONATE 8.4% 50 ML in SODIUM CHLORIDE 0.45% 1,000 ML IV SCH (13:00)
[2020-07-22 15:24] LABS: CALCIUM 8.5 mg/dL (8.4-10.2); CREATININE, SERUM 2.32 mg/dL (0.72-1.25)
[2020-07-22] MEDS: SODIUM CHLORIDE 0.9% 1000ML 1,000 ML IV SCH (17:14)
[2020-07-22] MEDS: ATORVASTATIN 40 MG TAB PO SCH (20:54)
[2020-07-22] MEDS ORDERED: CEFTRIAXONE SOD 1 GM/50 ML BAG IV SCH (21:15)
[2020-07-22] MEDS: CEFTRIAXONE SOD 1 GM in DEXTROSE 5% 50ML 50 ML IV SCH (21:33)
[2020-07-23] VITALS (9 sets, daily range): BP systolic 110–133; BP diastolic 63–70
[2020-07-23] MEDS: SODIUM CHLORIDE 0.9% 1000ML 1,000 ML IV SCH ×2 (05:38→17:03)
[2020-07-23] MEDS: INSULIN LISPRO 100 UNIT/1 ML 3ML VIAL SQ SCH ×4 (07:30→21:00)
[2020-07-23 07:40] LABS: BASOPHILS # (AUTO) 0.1 (0.0-0.1); BASOPHILS % 0.7 % (0.0-1.0); EOSINOPHILS # (AUTO) 0.2 (0.0-0.4); EOSINOPHILS % 2.9 % (0.0-6.0); HEMATOCRIT 39.2 % (38.2-49.6); HEMOGLOBIN 12.4 g/dL (14.0-18.0); LYMPHOCYTES # (AUTO) 2.6 (1.0-3.2); LYMPHOCYTES % 35.6 % (18.0-39.1); MEAN CORPUSCULAR HEMOGLOBIN 29.7 pg (28-32); MEAN CORPUSCULAR HGB CONC 31.6 g/dL (31-35); MEAN CORPUSCULAR VOLUME 93.8 fL (81-99); MONOCYTES # (AUTO) 0.5 (0.2-0.8); MONOCYTES % 6.5 % (4.4-11.3); NEUTROPHILS % 53.9 % (38.7-80.0); PLATELET COUNT 103 x10e3/uL (140-360); RED BLOOD COUNT 4.18 x10e6/uL (4.3-5.7); RED CELL DISTRIBUTION WIDTH 15.7 % (11.7-14.4)
[2020-07-23] MEDS: AMIODARONE HCL 200 MG TAB PO SCH (08:49)
[2020-07-23] MEDS: PANTOPRAZOLE 40 MG 10ML VIAL IV SCH ×2 (08:49→21:34)
[2020-07-23] MEDS: FENOFIBRATE 48 MG TAB PO SCH (08:49)
[2020-07-23] MEDS: SUCRALFATE 1 GM TAB PO SCH ×4 (08:49→21:34)
[2020-07-23] MEDS: METOPROLOL SUCCINATE 50 MG TAB XL PO SCH (08:49)
[2020-07-23 14:22] LABS: ANION GAP 14.7 mmol/L (8-16); CALCIUM 8.7 mg/dL (8.4-10.2); CREATININE, SERUM 1.71 mg/dL (0.72-1.25); POTASSIUM 3.7 mmol/L (3.5-5.1)
[2020-07-23] MEDS: HEPARIN 25,000 UNIT 1,500 UNIT in DEXTROSE 5% 250ML 250 ML IV SCH (17:03)
[2020-07-23] MEDS: ATORVASTATIN 40 MG TAB PO SCH (21:34)
[2020-07-23] MEDS: CEFTRIAXONE SOD 1 GM in DEXTROSE 5% 50ML 50 ML IV SCH (21:34)
[2020-07-23] MEDS ORDERED: CEFTRIAXONE SOD 1 GM VIAL ONE (21:37)
[2020-07-24] VITALS (8 sets, daily range): BP systolic 122–141; BP diastolic 70–95
[2020-07-24 06:26] LABS: BASOPHILS # (AUTO) 0.1 (0.0-0.1); BASOPHILS % 0.7 % (0.0-1.0); EOSINOPHILS # (AUTO) 0.2 (0.0-0.4); EOSINOPHILS % 3.3 % (0.0-6.0); HEMATOCRIT 37.4 % (38.2-49.6); LYMPHOCYTES # (AUTO) 3.1 (1.0-3.2); LYMPHOCYTES % 44.4 % (18.0-39.1); MEAN CORPUSCULAR HEMOGLOBIN 29.9 pg (28-32); MEAN CORPUSCULAR HGB CONC 32.1 g/dL (31-35); MONOCYTES # (AUTO) 0.6 (0.2-0.8); MONOCYTES % 8.1 % (4.4-11.3); NEUTROPHILS % 43.1 % (38.7-80.0); PLATELET COUNT 147 x10e3/uL (140-360); RED BLOOD COUNT 4.02 x10e6/uL (4.3-5.7); RED CELL DISTRIBUTION WIDTH 15.3 % (11.7-14.4)
[2020-07-24 06:49] LABS: ANION GAP 14.8 mmol/L (8-16); CALCIUM 8.7 mg/dL (8.4-10.2); CREATININE, SERUM 1.59 mg/dL (0.72-1.25); POTASSIUM 3.8 mmol/L (3.5-5.1)
[2020-07-24] MEDS: INSULIN LISPRO 100 UNIT/1 ML 3ML VIAL SQ SCH ×4 (07:30→19:58)
[2020-07-24] MEDS: FENOFIBRATE 48 MG TAB PO SCH (07:58)
[2020-07-24] MEDS: PANTOPRAZOLE 40 MG 10ML VIAL IV SCH ×2 (07:58→19:52)
[2020-07-24] MEDS: SODIUM CHLORIDE 0.9% 1000ML 1,000 ML IV SCH ×2 (07:58→19:52)
[2020-07-24] MEDS: METOPROLOL SUCCINATE 50 MG TAB XL PO SCH (07:58)
[2020-07-24] MEDS: AMIODARONE HCL 200 MG TAB PO SCH (07:58)
[2020-07-24] MEDS: SUCRALFATE 1 GM TAB PO SCH ×4 (07:58→19:52)
[2020-07-24] MEDS: HEPARIN 25,000 UNIT 1,500 UNIT in DEXTROSE 5% 250ML 250 ML IV SCH (17:02)
[2020-07-24] MEDS: ATORVASTATIN 40 MG TAB PO SCH (19:52)
[2020-07-24] MEDS ORDERED: CEFTRIAXONE SOD 1 GM VIAL ONE (19:52)
[2020-07-24] MEDS ORDERED: SODIUM CHLORIDE 0.9% 50ML 0 ML ONE (19:52)
[2020-07-24] MEDS: CEFTRIAXONE SOD 1 GM in DEXTROSE 5% 50ML 50 ML IV SCH (19:52)
[2020-07-25] VITALS (8 sets, daily range): BP systolic 122–144; BP diastolic 69–87
[2020-07-25] MEDS: SODIUM CHLORIDE 0.9% 1000ML 1,000 ML IV SCH (05:32)
[2020-07-25 05:50] LABS: BASOPHILS # (AUTO) 0.1 (0.0-0.1); BASOPHILS % 0.8 % (0.0-1.0); EOSINOPHILS # (AUTO) 0.2 (0.0-0.4); EOSINOPHILS % 3.3 % (0.0-6.0); HEMATOCRIT 36.7 % (38.2-49.6); HEMOGLOBIN 11.9 g/dL (14.0-18.0); LYMPHOCYTES # (AUTO) 2.6 (1.0-3.2); LYMPHOCYTES % 43.4 % (18.0-39.1); MEAN CORPUSCULAR HEMOGLOBIN 29.9 pg (28-32); MEAN CORPUSCULAR HGB CONC 32.4 g/dL (31-35); MEAN CORPUSCULAR VOLUME 92.2 fL (81-99); MONOCYTES # (AUTO) 0.4 (0.2-0.8); MONOCYTES % 7.3 % (4.4-11.3); NEUTROPHILS # (AUTO) 2.7 (2.1-6.9); NEUTROPHILS % 44.7 % (38.7-80.0); PLATELET COUNT 172 x10e3/uL (140-360); RED BLOOD COUNT 3.98 x10e6/uL (4.3-5.7); RED CELL DISTRIBUTION WIDTH 15.3 % (11.7-14.4)
[2020-07-25 06:18] LABS: ANION GAP 14.7 mmol/L (8-16); CALCIUM 8.4 mg/dL (8.4-10.2); CREATININE, SERUM 1.48 mg/dL (0.72-1.25); POTASSIUM 3.7 mmol/L (3.5-5.1)
[2020-07-25] MEDS: PANTOPRAZOLE 40 MG 10ML VIAL IV SCH ×2 (07:30→21:21)
[2020-07-25] MEDS: INSULIN LISPRO 100 UNIT/1 ML 3ML VIAL SQ SCH ×4 (07:30→21:00)
[2020-07-25] MEDS: SUCRALFATE 1 GM TAB PO SCH ×4 (07:30→21:21)
[2020-07-25] MEDS: METOPROLOL SUCCINATE 50 MG TAB XL PO SCH (09:00)
[2020-07-25] MEDS: FENOFIBRATE 48 MG TAB PO SCH (09:00)
[2020-07-25] MEDS: AMIODARONE HCL 200 MG TAB PO SCH (09:00)
[2020-07-25] MEDS: HEPARIN 25,000 UNIT 1,500 UNIT in DEXTROSE 5% 250ML 250 ML IV SCH (16:22)
[2020-07-25] MEDS: ATORVASTATIN 40 MG TAB PO SCH (21:21)
[2020-07-25] MEDS: CEFTRIAXONE SOD 1 GM in DEXTROSE 5% 50ML 50 ML IV SCH (21:21)
[2020-07-25] MEDS ORDERED: CEFTRIAXONE SOD 1 GM VIAL ONE (21:25)
[2020-07-25] MEDS ORDERED: SODIUM CHLORIDE 0.9% 50ML 50 ML ONE (21:26)
[2020-07-26] VITALS (7 sets, daily range): BP systolic 93–134; BP diastolic 53–74
[2020-07-26 06:21] LABS: BASOPHILS # (AUTO) 0.1 (0.0-0.1); BASOPHILS % 0.6 % (0.0-1.0); EOSINOPHILS # (AUTO) 0.3 (0.0-0.4); EOSINOPHILS % 3.6 % (0.0-6.0); HEMATOCRIT 36.9 % (38.2-49.6); HEMOGLOBIN 11.8 g/dL (14.0-18.0); LYMPHOCYTES # (AUTO) 3.3 (1.0-3.2); LYMPHOCYTES % 42.5 % (18.0-39.1); MEAN CORPUSCULAR HEMOGLOBIN 29.7 pg (28-32); MEAN CORPUSCULAR VOLUME 92.9 fL (81-99); MONOCYTES # (AUTO) 0.6 (0.2-0.8); MONOCYTES % 7.9 % (4.4-11.3); NEUTROPHILS # (AUTO) 3.5 (2.1-6.9); PLATELET COUNT 184 x10e3/uL (140-360); RED BLOOD COUNT 3.97 x10e6/uL (4.3-5.7); RED CELL DISTRIBUTION WIDTH 15.2 % (11.7-14.4)
[2020-07-26 06:42] LABS: ANION GAP 11.9 mmol/L (8-16); CALCIUM 8.7 mg/dL (8.4-10.2); CREATININE, SERUM 1.65 mg/dL (0.72-1.25); POTASSIUM 3.9 mmol/L (3.5-5.1)
[2020-07-26] MEDS: INSULIN LISPRO 100 UNIT/1 ML 3ML VIAL SQ SCH ×4 (07:30→20:47)
[2020-07-26] MEDS: PANTOPRAZOLE 40 MG 10ML VIAL IV SCH ×2 (08:42→20:52)
[2020-07-26] MEDS: SUCRALFATE 1 GM TAB PO SCH ×4 (08:42→20:52)
[2020-07-26] MEDS: FENOFIBRATE 48 MG TAB PO SCH (08:43)
[2020-07-26] MEDS: AMIODARONE HCL 200 MG TAB PO SCH (08:44)
[2020-07-26] MEDS: METOPROLOL SUCCINATE 50 MG TAB XL PO SCH (08:55)
[2020-07-26] MEDS: APIXABAN 5 MG TABLET PO SCH (15:59)
[2020-07-26] MEDS: CEFTRIAXONE SOD 1 GM in DEXTROSE 5% 50ML 50 ML IV SCH (20:52)
[2020-07-26] MEDS: ATORVASTATIN 40 MG TAB PO SCH (20:52)
[2020-07-26] MEDS ORDERED: CEFTRIAXONE SOD 1 GM VIAL ONE (20:59)
[2020-07-26] MEDS ORDERED: SODIUM CHLORIDE 0.9% 50ML 50 ML ONE (21:00)
[2020-07-27 00:01] VITALS: BP 118/71
[2020-07-27 05:48] VITALS: BP 113/77
[2020-07-27 06:28] LABS: BASOPHILS # (AUTO) 0.1 (0.0-0.1); BASOPHILS % 0.8 % (0.0-1.0); EOSINOPHILS # (AUTO) 0.3 (0.0-0.4); EOSINOPHILS % 4.2 % (0.0-6.0); HEMATOCRIT 37.9 % (38.2-49.6); HEMOGLOBIN 12.5 g/dL (14.0-18.0); LYMPHOCYTES # (AUTO) 2.8 (1.0-3.2); LYMPHOCYTES % 38.6 % (18.0-39.1); MEAN CORPUSCULAR HEMOGLOBIN 30.3 pg (28-32); MEAN CORPUSCULAR VOLUME 91.8 fL (81-99); MONOCYTES # (AUTO) 0.5 (0.2-0.8); MONOCYTES % 7.5 % (4.4-11.3); NEUTROPHILS # (AUTO) 3.5 (2.1-6.9); NEUTROPHILS % 48.3 % (38.7-80.0); PLATELET COUNT 191 x10e3/uL (140-360); RED BLOOD COUNT 4.13 x10e6/uL (4.3-5.7); RED CELL DISTRIBUTION WIDTH 15.2 % (11.7-14.4)
[2020-07-27 06:48] LABS: ANION GAP 13.8 mmol/L (8-16); CALCIUM 8.7 mg/dL (8.4-10.2); CREATININE, SERUM 1.77 mg/dL (0.72-1.25); POTASSIUM 3.8 mmol/L (3.5-5.1)
[2020-07-27] MEDS: INSULIN LISPRO 100 UNIT/1 ML 3ML VIAL SQ SCH ×3 (07:14→15:50)
[2020-07-27 07:55] VITALS: BP 119/73
[2020-07-27] MEDS: SUCRALFATE 1 GM TAB PO SCH ×3 (08:18→17:07)
[2020-07-27] MEDS: PANTOPRAZOLE 40 MG 10ML VIAL IV SCH (08:18)
[2020-07-27] MEDS: AMIODARONE HCL 200 MG TAB PO SCH (08:18)
[2020-07-27] MEDS: APIXABAN 5 MG TABLET PO SCH ×2 (08:19→17:07)
[2020-07-27] MEDS: FENOFIBRATE 48 MG TAB PO SCH (08:20)
[2020-07-27] MEDS: METOPROLOL SUCCINATE 50 MG TAB XL PO SCH (08:20)
[2020-07-27 09:31] VITALS: BP 119/73
[2020-07-27 11:32] VITALS: BP 128/70
[2020-07-27] MEDS ORDERED: CARAFATE1 GM PO (13:43)
[2020-07-27] MEDS ORDERED: TOPROL XL50 MG PO (13:43)
[2020-07-27] MEDS ORDERED: ELIQUIS5 MG PO (13:43)
[2020-07-27 15:50] VITALS: BP 126/75
== END 2020-07-27 17:07 | disposition home or self-care (01) | DRG 300 ==
LOC: ER 22:06 → ERHOLD 07-22 00:34 → IMCU 07-22 03:48 → MED/SURG3 07-24 21:56
PROVIDERS: ADMIT Internal Medicine; ATTEND Internal Medicine
DX: I82.403 Acute embolism and thrombosis of unspecified deep veins of lower extremity, bilateral (principal); N39.0 Urinary tract infection, site not specified; N17.9 Acute kidney failure, unspecified; I13.0 Hypertensive heart and chronic kidney disease with heart failure and stage 1 through stage 4 chronic kidney disease, or unspecified chronic kidney disease; I50.22 Chronic systolic (congestive) heart failure; E87.2 Acidosis; Z20.822 Contact with and (suspected) exposure to COVID-19; B96.20 Unspecified Escherichia coli [E. coli] as the cause of diseases classified elsewhere; R77.1 Abnormality of globulin; E88.09 Other disorders of plasma-protein metabolism, not elsewhere classified; E87.5 Hyperkalemia; I25.10 Atherosclerotic heart disease of native coronary artery without angina pectoris; I48.0 Paroxysmal atrial fibrillation; Z79.01 Long term (current) use of anticoagulants; K29.70 Gastritis, unspecified, without bleeding; N18.9 Chronic kidney disease, unspecified; E11.22 Type 2 diabetes mellitus with diabetic chronic kidney disease; Z95.828 Presence of other vascular implants and grafts
CPT/HCPCS: 36415; 71045; 76770; 80048; 80053; 81001; 82550; 82948; 83605; 83880; 84484; 85025; 85379; 85610; 85730; 87040; 87086; 87186; 93005; 93970; 93976; 96361; 99284; J0696; J7030; U0002